=== PATIENT | male | born 1985 | race Caucasian/White ===

== ENCOUNTER 2018-05-15 22:22 | Emergency (ER) | payer SELFPAY ==
[2018-05-15] VITALS (19 sets, daily range): BP systolic 121–140; BP diastolic 65–81; PULSE 72–95; RESP 12–25; TEMP 37.2; O2SAT 94–99
--- NOTE | 2018-05-15 00:42 | DI.RAD_ITS ---
SYMPTOMS/DIAGNOSIS: R > L CHEST DISCOMFORT PA AND LATERAL CHEST: Comparison 03/29/15. The heart is normal in size. The lungs are clear. The mediastinal structures and pleura appear intact. CONCLUSION: Normal chest.
--- NOTE | 2018-05-15 22:41 | W.ED.GENAD ---
Discharge Plan Disposition Patient Disposition: HOME Condition: Improving Discharge Details Chief Complaint: Chest Pain Clinical Impression: Atypical chest pain Primary Care Provider: Can Segura ED Provider: Leon Matias Home Meds and New Rx's Prescriptions: No Action No Known Home Meds RF: 0 Discharge Instructions Instructions: Chest Pain (ED) Additional Instructions: I have ordered an outpatient ultrasound of your gallbladder for Thursday, the radiology department will contact you for an appointment time. Return for any acute concerns. May use tylenol as needed for pain. Medical Decision Making 32-year-old male presents from home with his . He said intermittent episodes of substernal chest discomfort over days time lasting 10 minutes. He arrives improved, well-appearing, with unremarkable vital signs, and exam was essentially within normal limits. Differential diagnosis is broad and would include gastritis, biliary colic, pancreatitis, acute coronary syndrome, pulmonary embolism. Patient referred for EKG, laboratory testing, chest x-ray. Patients labs are essentially unremarkable. His pain did improve in the ED. There is no evidence of PE, pancreatitis. Patient was observed on a vehicle monitor technician with repeat troponin obtained and negative. Discussed with him that there is not evidence of acute life-threatening illness. I will arrange for outpatient right upper quadrant ultrasound to rule out biliary colic. He is stable and appropriate discharged home with his family. He understands return precautions to the ER. Lab Data Lab results reviewed: Yes I reviewed the patient's lab results. Laboratory Tests Range/Units 05/15/18 05/15/18 05/15/18 22:35 22:35 22:35 WBC (4.4-10.8) k/cumm 11.05 H RBC (4.50-6.00) m/cumm 4.85 Hgb (13.5-17.5) g/dL 15.0 Hct (40.0-50.0) % 44.9 MCV (80-95) fL 92.6 MCH (27.0-33.0) pg 30.9 MCHC (32.0-36.0) g/dL 33.4 RDW (11.8-14.1) % 12.7 Plt Count (130-400) x1000/uL 283 MPV (8.0-11.0) fL 10.3 Immature Gran % 0.3 Neutrophils % 53.1 Lymphocytes % 35.1 Monocytes % 7.2 Eosinophils % 3.8 Basophils % 0.5 Absolute Neutrophils (1.2-6.7) k/cumm 5.87 Absolute Lymphocytes (1.2-3.4) k/cumm 3.88 H Absolute Monocytes (0.11-0.7) k/cumm 0.80 H Absolute Eosinophils (0.0-0.7) k/cumm 0.42 Absolute Basophils (0.0-0.2) k/cumm 0.06 PT (9.3-10.8) sec 9.7 INR (1.0-3.5) 1.0 D-Dimer (<500) ng/mlFEU 174 Sodium (136-145) mmol/L 139 Potassium (3.5-5.1) mmol/L 3.7 Chloride (98-107) mmol/L 102 Carbon Dioxide (21.0-32.0) mmol/L 28.2 Anion Gap (3-11) mmol/L 8.8 BUN (7-18) mg/dL 19 H Creatinine (0.70-1.30) mg/dL 0.90 Estimated GFR/1.73 m2 (mL/min/1.73m2) >= 60.00 Glucose (70-100) mg/dL 112 H Calcium (8.5-10.1) mg/dL 9.0 Total Bilirubin (0.2-1.0) mg/dL 0.3 AST (15-37) U/L 26 ALT (12-78) U/L 57 Alkaline Phosphatase (46-116) U/L 92 Troponin I (0.00-0.06) ng/mL < 0.02 Total Protein (6.4-8.2) g/dL 7.1 Albumin (3.4-5.0) g/dL 3.8 Lipase (73-393) U/L Range/Units 05/15/18 22:35 WBC (4.4-10.8) k/cumm RBC (4.50-6.00) m/cumm Hgb (13.5-17.5) g/dL Hct (40.0-50.0) % MCV (80-95) fL MCH (27.0-33.0) pg MCHC (32.0-36.0) g/dL RDW (11.8-14.1) % Plt Count (130-400) x1000/uL MPV (8.0-11.0) fL Immature Gran % Neutrophils % Lymphocytes % Monocytes % Eosinophils % Basophils % Absolute Neutrophils (1.2-6.7) k/cumm Absolute Lymphocytes (1.2-3.4) k/cumm Absolute Monocytes (0.11-0.7) k/cumm Absolute Eosinophils (0.0-0.7) k/cumm Absolute Basophils (0.0-0.2) k/cumm PT (9.3-10.8) sec INR (1.0-3.5) D-Dimer (<500) ng/mlFEU Sodium (136-145) mmol/L Potassium (3.5-5.1) mmol/L Chloride (98-107) mmol/L Carbon Dioxide (21.0-32.0) mmol/L Anion Gap (3-11) mmol/L BUN (7-18) mg/dL Creatinine (0.70-1.30) mg/dL Estimated GFR/1.73 m2 (mL/min/1.73m2) Glucose (70-100) mg/dL Calcium (8.5-10.1) mg/dL Total Bilirubin (0.2-1.0) mg/dL AST (15-37) U/L ALT (12-78) U/L Alkaline Phosphatase (46-116) U/L Troponin I (0.00-0.06) ng/mL Total Protein (6.4-8.2) g/dL Albumin (3.4-5.0) g/dL Lipase (73-393) U/L 142 ECG Data Attestation: I personally reviewed and interpreted this ECG (s) as follows: Interpretation: Normal sinus rhythm, rate of 84, normal intervals, no ST segment elevation HPI General Mode of arrival: ambulatory. Date/Time Provider Initiated Documentation: 05/15/18 22:26. Limitations to Documentation: no limitations. Information obtained by: patient. History of Present Illness 32 year old M presents to the emergency department with the chief complaint of Chest pain, described as moderate, Quality is described as aching, and is localized to the chest and right. Patient reports no radiation. and it has been intermittent. No relieving factors improve symptom(s), No exacerbating factors reported . Patient notes denies fever/chills. HPI Narrative: 32-year-old male presents from home with his complaining of intermittent episodes of substernal to right-sided chest achy and burning discomfort that lasts 10 minutes and dissipates on its own. It comes on without warning. Question whether he had a brief episode of passing out. He has not had leg pain or swelling. He does continue to smoke. He has a family history of coronary artery disease Related Data Home Medications Medication Instructions Recorded Confirmed Unknown [No Known Home Meds] 05/15/18 05/15/18 Allergies Allergy/AdvReac Type Severity Reaction Status Date / Time blueberry Allergy Unknown Unverified 05/15/18 22:54 SEASONAL ALLERGY Allergy Unknown Uncoded 05/15/18 22:54 Review of Systems Review of Systems 8 systems reviewed and otherwise negative [facility] Family History Mother Essential hypertension Father Asthma Sister No problems noted. Grandfather No problems noted. Grandfather No problems noted. Grandmother No problems noted. Grandmother No problems noted. Social History Smoking/Tobacco Use Status: Current every day Exam Narrative Exam Narrative: GEN: awake, alert, oriented 3. Pleasant, well groomed, interactive. HEAD: Normocephalic, atraumatic ENT: Mucous membranes moist, oropharynx unremarkable, External ear exam unremarkable EYES: PERRL, EOMI NECK: Full ROM, no WILDA, no menigismus CHEST/RESP: Nontender, clear to auscultation bilateral, no wheeze/rhonchi/rales CARDIOVASCULAR: RRR, no murmur, rub yesi. 2+ Rad pulse bilateral ABDOMEN: Soft, nontender, no mass. +Bowel sounds EXT: Full ROM, no edema, no rash Neuro: Grossly normal neurologic exam, conversant, interactive. Psych: Speech fluent, thoughts congruent, affect normal
--- NOTE | 2018-05-15 22:44 | ED.GENADUL_ITS ---
Discharge Plan Disposition Patient Disposition: HOME Condition: Improving Discharge Details Chief Complaint: Chest Pain Clinical Impression: Atypical chest pain Primary Care Provider: Can Segura ED Provider: Leon Matias Home Meds and New Rx's Prescriptions: No Action No Known Home Meds RF: 0 Discharge Instructions Instructions: Chest Pain (ED) Additional Instructions: I have ordered an outpatient ultrasound of your gallbladder for Thursday, the radiology department will contact you for an appointment time. Return for any acute concerns. May use tylenol as needed for pain. Medical Decision Making 32-year-old male presents from home with his . He said intermittent episodes of substernal chest discomfort over days time lasting 10 minutes. He arrives improved, well-appearing, with unremarkable vital signs, and exam was essentially within normal limits. Differential diagnosis is broad and would include gastritis, biliary colic, pancreatitis, acute coronary syndrome, pulmonary embolism. Patient referred for EKG, laboratory testing, chest x-ray. Patients labs are essentially unremarkable. His pain did improve in the ED. There is no evidence of PE, pancreatitis. Patient was observed on a residential monitor with repeat troponin obtained and negative. Discussed with him that there is not evidence of acute life-threatening illness. I will arrange for outpatient right upper quadrant ultrasound to rule out biliary colic. He is stable and appropriate discharged home with his family. He understands return precautions to the ER. Lab Data Lab results reviewed: Yes I reviewed the patient's lab results. Laboratory Tests Range/Units 05/15/18 05/15/18 05/15/18 22:35 22:35 22:35 WBC (4.4-10.8) k/cumm 11.05 H RBC (4.50-6.00) m/cumm 4.85 Hgb (13.5-17.5) g/dL 15.0 Hct (40.0-50.0) % 44.9 MCV (80-95) fL 92.6 MCH (27.0-33.0) pg 30.9 MCHC (32.0-36.0) g/dL 33.4 RDW (11.8-14.1) % 12.7 Plt Count (130-400) x1000/uL 283 MPV (8.0-11.0) fL 10.3 Immature Gran % 0.3 Neutrophils % 53.1 Lymphocytes % 35.1 Monocytes % 7.2 Eosinophils % 3.8 Basophils % 0.5 Absolute Neutrophils (1.2-6.7) k/cumm 5.87 Absolute Lymphocytes (1.2-3.4) k/cumm 3.88 H Absolute Monocytes (0.11-0.7) k/cumm 0.80 H Absolute Eosinophils (0.0-0.7) k/cumm 0.42 Absolute Basophils (0.0-0.2) k/cumm 0.06 PT (9.3-10.8) sec 9.7 INR (1.0-3.5) 1.0 D-Dimer (<500) ng/mlFEU 174 Sodium (136-145) mmol/L 139 Potassium (3.5-5.1) mmol/L 3.7 Chloride (98-107) mmol/L 102 Carbon Dioxide (21.0-32.0) mmol/L 28.2 Anion Gap (3-11) mmol/L 8.8 BUN (7-18) mg/dL 19 H Creatinine (0.70-1.30) mg/dL 0.90 Estimated GFR/1.73 m2 (mL/min/1.73m2) >= 60.00 Glucose (70-100) mg/dL 112 H Calcium (8.5-10.1) mg/dL 9.0 Total Bilirubin (0.2-1.0) mg/dL 0.3 AST (15-37) U/L 26 ALT (12-78) U/L 57 Alkaline Phosphatase (46-116) U/L 92 Troponin I (0.00-0.06) ng/mL < 0.02 Total Protein (6.4-8.2) g/dL 7.1 Albumin (3.4-5.0) g/dL 3.8 Lipase (73-393) U/L Range/Units 05/15/18 22:35 WBC (4.4-10.8) k/cumm RBC (4.50-6.00) m/cumm Hgb (13.5-17.5) g/dL Hct (40.0-50.0) % MCV (80-95) fL MCH (27.0-33.0) pg MCHC (32.0-36.0) g/dL RDW (11.8-14.1) % Plt Count (130-400) x1000/uL MPV (8.0-11.0) fL Immature Gran % Neutrophils % Lymphocytes % Monocytes % Eosinophils % Basophils % Absolute Neutrophils (1.2-6.7) k/cumm Absolute Lymphocytes (1.2-3.4) k/cumm Absolute Monocytes (0.11-0.7) k/cumm Absolute Eosinophils (0.0-0.7) k/cumm Absolute Basophils (0.0-0.2) k/cumm PT (9.3-10.8) sec INR (1.0-3.5) D-Dimer (<500) ng/mlFEU Sodium (136-145) mmol/L Potassium (3.5-5.1) mmol/L Chloride (98-107) mmol/L Carbon Dioxide (21.0-32.0) mmol/L Anion Gap (3-11) mmol/L BUN (7-18) mg/dL Creatinine (0.70-1.30) mg/dL Estimated GFR/1.73 m2 (mL/min/1.73m2) Glucose (70-100) mg/dL Calcium (8.5-10.1) mg/dL Total Bilirubin (0.2-1.0) mg/dL AST (15-37) U/L ALT (12-78) U/L Alkaline Phosphatase (46-116) U/L Troponin I (0.00-0.06) ng/mL Total Protein (6.4-8.2) g/dL Albumin (3.4-5.0) g/dL Lipase (73-393) U/L 142 ECG Data Attestation: I personally reviewed and interpreted this ECG (s) as follows: Interpretation: Normal sinus rhythm, rate of 84, normal intervals, no ST segment elevation HPI General Mode of arrival: ambulatory . Date/Time Provider Initiated Documentation: 05/15/18 22:26 . Limitations to Documentation: no limitations . Information obtained by: patient . History of Present Illness 32 year old M presents to the emergency department with the chief complaint of Chest pain, described as moderate, Quality is described as aching, and is localized to the chest and right. Patient reports no radiation. and it has been intermittent. No relieving factors improve symptom(s), No exacerbating factors reported . Patient notes denies fever/chills. HPI Narrative: 32-year-old male presents from home with his complaining of intermittent episodes of substernal to right-sided chest achy and burning discomfort that lasts 10 minutes and dissipates on its own. It comes on without warning. Question whether he had a brief episode of passing out. He has not had leg pain or swelling. He does continue to smoke. He has a family history of coronary artery disease Related Data Home Medications Medication Instructions Recorded Confirmed Unknown [No Known Home Meds] 05/15/18 05/15/18 Allergies Allergy/AdvReac Type Severity Reaction Status Date / Time blueberry Allergy Unknown Unverified 05/15/18 22:54 SEASONAL ALLERGY Allergy Unknown Uncoded 05/15/18 22:54 Review of Systems Review of Systems 8 systems reviewed and otherwise negative [facility] Family History Mother Essential hypertension Father Asthma Sister No problems noted. Grandfather No problems noted. Grandfather No problems noted. Grandmother No problems noted. Grandmother No problems noted. Social History Smoking/Tobacco Use Status: Current every day Exam Narrative Exam Narrative: GEN: awake, alert, oriented 3. Pleasant, well groomed, interactive. HEAD: Normocephalic, atraumatic ENT: Mucous membranes moist, oropharynx unremarkable, External ear exam unremarkable EYES: PERRL, EOMI NECK: Full ROM, no WILDA, no menigismus CHEST/RESP: Nontender, clear to auscultation bilateral, no wheeze/rhonchi/rales CARDIOVASCULAR: RRR, no murmur, rub yesi. 2+ Rad pulse bilateral ABDOMEN: Soft, nontender, no mass. +Bowel sounds EXT: Full ROM, no edema, no rash Neuro: Grossly normal neurologic exam, conversant, interactive. Psych: Speech fluent, thoughts congruent, affect normal
[2018-05-15 23:07] LABS: Abs Immature Grans 0.03 k/cumm (0.0-0.09); Absolute Basophil Count 0.06 k/cumm (0.0-0.2); Absolute Eosinophil Count 0.42 k/cumm (0.0-0.7); Absolute Lymphocyte Count 3.88 k/cumm (1.2-3.4); Basophils % 0.5; Eosinophils % 3.8; HCT 44.9 % (40.0-50.0); Immature Grans % 0.3; Lymphocytes % 35.1; Mean Corp. HGB Concentration 33.4 g/dL (32.0-36.0); Mean Corpuscular Hemoglobin 30.9 pg (27.0-33.0); Mean Corpuscular Volume 92.6 fL (80-95); Mean Platelet Volume 10.3 fL (8.0-11.0); Monocytes % 7.2; Neutrophils % 53.1; Platelet Count 283 x1000/uL (130-400); RBC 4.85 m/cumm (4.50-6.00); RBC Distribution Width 12.7 % (11.8-14.1); White Blood Cell Count 11.05 k/cumm (4.4-10.8)
[2018-05-15 23:08] LABS: Absolute Neutrophil Count 5.87 k/cumm (1.2-6.7)
[2018-05-15] MEDS: Normal Saline 1,000 ML 125 ML IV (23:09)
[2018-05-15 23:18] LABS: Lipase 142 U/L (73-393)
[2018-05-15 23:23] LABS: ALT 57 U/L (12-78); AST 26 U/L (15-37); Albumin 3.8 g/dL (3.4-5.0); Alkaline Phosphatase 92 U/L (46-116); Anion Gap 8.8 mmol/L (3-11); BUN 19 mg/dL (7-18); Bilirubin, Total 0.3 mg/dL (0.2-1.0); CO2 28.2 mmol/L (21.0-32.0); Chloride 102 mmol/L (98-107); Glucose 112 mg/dL (70-100); Potassium 3.7 mmol/L (3.5-5.1); Sodium 139 mmol/L (136-145); Total Protein 7.1 g/dL (6.4-8.2)
[2018-05-15 23:31] LABS: Prothrombin Time 9.7 sec (9.3-10.8)
[2018-05-15 23:35] LABS: Troponin I < 0.02 ng/mL (0.00-0.06)
[2018-05-15 23:37] LABS: D-Dimer 174 ng/mlFEU (<500)
[2018-05-16] VITALS (13 sets, daily range): BP systolic 125–133; BP diastolic 67–77; PULSE 70–88; RESP 11–27; O2SAT 93–96
--- NOTE | 2018-05-16 00:46 | DI.VRAD_ITS ---
EXAM: XR Chest, 2 Views EXAM DATE/TIME: 05/15/2018 11:44 PM CLINICAL HISTORY: 32 years old, male; Signs and symptoms; Cough; Patient HX: Cough, r>l chest discomfort. TECHNIQUE: XR of the chest, 2 views. COMPARISON: CR PORTABLE CHEST ONE VIEW 03/29/2015 10:17 PM FINDINGS: Lungs: Unremarkable. No consolidation. Pleural space: Unremarkable. No pleural effusion. No pneumothorax. Heart/Mediastinum: Unremarkable. No cardiomegaly. Bones/joints: Unremarkable. IMPRESSION: No acute findings. Dictated and Authenticated by: Luís Best MD. Ordering:SHAR NGO MD
[2018-05-16 01:16] LABS: Troponin I < 0.02 ng/mL (0.00-0.06)
== END 2018-05-16 01:35 | disposition home or self-care (01) ==
PROVIDERS: Emergency Provider Emergency Medicine; PCP Family Medicine
DX: R07.89 Other chest pain (principal)
CPT/HCPCS: 36415; 80053; 83690; 93005; 96360; 96361; 99285; 71046; 84484; 85025; 85379; 85610; 93010; 99284

== ENCOUNTER 2018-05-18 15:42 | Emergency (ER) | payer SELFPAY ==
[2018-05-18] VITALS (7 sets, daily range): BP systolic 106–119; BP diastolic 73–85; PULSE 59–88; RESP 16; TEMP 36.6; O2SAT 93–97
--- NOTE | 2018-05-18 15:54 | W.ED.GENAD ---
Discharge Plan Disposition Patient Disposition: HOME Condition: Fair Discharge Details Chief Complaint: Chest/Rib Clinical Impression: Colitis Primary Care Provider: Can Segura ED Provider: Rauqel Almonte Home Meds and New Rx's Prescriptions: New metronidazole [Flagyl] 500 mg tablet 500 mg PO TID Qty: 15 RF: 0 ciprofloxacin HCl [Cipro] 500 mg tablet 500 mg PO BID Qty: 10 RF: 0 promethazine 25 mg tablet 25 mg PO Q6H PRN (Reason: nausea and vomiting) Qty: 10 RF: 0 Discharge Instructions Instructions: Colitis (ED) Additional Instructions: Encourage hydration. Tylenol and/or Motrin as needed for discomfort. Phenergan as prescribed for nausea/vomiting. Please take antibiotics as prescribed for colitis. Our technical healthcare consultant will touch base with you regarding general surgery follow up. Please follow up with primary care in one week if symptoms persist. If you develop fevers, increased pain, are unable to stay hydrated or develop other new/worsening symptoms please seek care urgently once again. Referrals: Ana Davies MD [ [facility] STAFF PHYSICIAN] - ([phone]) Can Segura [Primary Care Provider] - Medical Decision Making <PRINCE Ortiz - Last Filed: 05/18/18 19:37> Patient is a 32-year-old male, accompanied by his , with chief complaint of right-sided flank and abdominal pain. Patient was seen here 2 days ago at which time he had the same discomfort but reports it was more centrally located. At that time, patient had a fairly extensive workup including cardiac rule out, evaluation for pancreatitis. He was referred to an outpatient ultrasound as there was concern for possible biliary colic. However, he reports that he came in for his ultrasound having eaten shortly prior to this and was advised to do this at a later date. He reports that yesterday he was feeling quite well. However, today the pain has exacerbated. States the pain continues to be intermittent lasting approximately 10 minutes at a time. States that food greatly exacerbates this. He attempted to have some chicken soup earlier today and reports that he vomited shortly after. Is currently endorsing nausea. Reports that his pain is somewhat subsided at this time. He denies any fevers or chills. Denies any chest pain or shortness of breath. Patient declining any analgesics at this time On exam, patient appears to be resting comfortably. With movement and laying back she does appear slightly uncomfortable. Reports that this is primarily along the right side. He is indicating the right upper quadrant around to the right flank is area of discomfort. Is quite different from what was described 2 days ago which is much more epigastric midline. Abdomen is soft, no guarding, peritoneal findings. Krause's test is negative. No pain over McBurney's point. No CVA tenderness with testing although this is the area where the patient is localizing discomfort with movement. No pain with AP or lateral compression of the chest. Lungs are clear in all melissa. Vital signs are within normal limits. Obtaied renal and abdominal ultrasound. Per field service technician, no acute abnormalities are noted. Vagina not note any hydronephrosis. Laboratory evaluation was obtained and is without significant of normality. No leukocytosis. Troponin is less than 0.02, lipase is normal. No abnormalities with liver enzymes. Waiting to obtain urinalysis. EKG reviewed by Dr. Polo, please see his note. Discussed findings with the patient. He reports that the Zofran was given intravenously helped minimally with his nausea. I did offer further antiemetics which she declined at this time Ultrasound reviewed by radiologist. Advised that liver measures 14.5 cm. Mild diffuse increase in hepatic echogenicity, consistent with fatty infiltration. Gallbladder wall 2.8 mm. Gallstones, negative sonographic Krause sign. Common bile duct 3.7 mm. Spleen 11.8 B. Visualized pancreas unremarkable. Right kidney 11.2 cm, no hydronephrosis left kidney 12.1 cm, no hydronephrosis prevoid bladder volume 25 cm?, bilateral ureteral jets visualized. Aorta 1.65 cm. Inferior vena cava normal. Portal portal vein is patent. Prostate volume 10 cm?. Advised overall impression significant for mild increase in hepatic parenchymal echodensity consistent with fatty infiltration Urinalysis pending. Patient endorses increased nausea and family has requested further antiemetics at this point. CT reviewed by radiologist. Liver is normal with no mass. Gallbladder is normal no calcified stones, no ductal dilation. Pancreas is normal no ductal dilation. Spleen is normal with no splenomegaly. Adrenals is normal no mass. Kidneys and ureters without abnormality, no calculus or hydronephrosis. The bowel wall is thickened in the right colon which may represent colitis. Normal appendix. Bladder is unremarkable as visualized. Reproductive is unremarkable as visualized. Intraperitoneal space is normal no free air, no significant fluid collection. Both the joints are normal with no acute fracture dislocation. Soft tissues are unremarkable. Vasculature is normal, no abdominal aortic aneurysm. No enlarged lymph nodes Discussed the findings with the patient. He is not endorsing any change in bowel habits. Again, patient has been afebrile no findings to suggest infection on laboratory evaluation. However, given the chronicity of his discomfort over the past several weeks, feels appropriate symmetry with antibiotics and refer to general surgery. Patient responded well to the Phenergan, is resting comfortably and endorses no nausea at this time. Plan to prescribe Cipro, Flagyl and Phenergan. I have asked her technical healthcare consultant help facilitate follow-up with general surgery. Have asked the patient to follow-up with his primary care in the next week as well. We discussed new/worsening symptoms once he care urgently once again. All his questions and concerns were addressed and he is in agreement this plan <Amilcar Polo DO - Last Filed: 05/18/18 17:15> ECG Data Interpretation: EKG 17: 11 Rate 61, intervals normal, no ST elevations or depressions, no significant T wave inversions. Small Q wave less than 1 mm Q waves in lead III. no other abnormal HPI <PRINCE Ortiz - Last Filed: 05/18/18 19:37> General Mode of arrival: ambulatory. Date/Time Provider Initiated Documentation: 05/18/18 15:53. Limitations to Documentation: no limitations. Information obtained by: patient and family. History of Present Illness 32 year old M presents to the emergency department with the chief complaint of abdomen/flank pain, described as moderate, with intensity rated at 7. Quality is described as aching, and is localized to the back and abdomen. Patient reports radiation to back and flank; denies neck and extremity. Patient started experiencing this week(s) (2-3) and it has been intermittent. No relieving factors improve symptom(s), Eating worsens symptoms . Patient notes chest pain (states he has had intermittent CP, now resolved.), fever/chills (endorses feeling chilled recently), loss of appetite and nausea/vomiting (vomited x 1, currently endorsing nausea); denies cough, diaphoresis, headaches, rash, shortness of breath and syncope. Patient did receive the following treatments prior to arrival, none Related Data Home Medications Medication Instructions Recorded Confirmed ciprofloxacin HCl [Cipro] 500 mg PO BID #10 tab 05/18/18 metronidazole [Flagyl] 500 mg PO TID #15 tab 05/18/18 promethazine 25 mg PO Q6H PRN #10 tab 05/18/18 Previous Rx's Medication Instructions Recorded ciprofloxacin HCl [Cipro] 500 mg PO BID #10 tab 05/18/18 metronidazole [Flagyl] 500 mg PO TID #15 tab 05/18/18 promethazine 25 mg PO Q6H PRN #10 tab 05/18/18 Allergies Allergy/AdvReac Type Severity Reaction Status Date / Time blueberry Allergy Unknown Unverified 05/18/18 15:51 SEASONAL ALLERGY Allergy Unknown Uncoded 05/18/18 15:51 General Stated Complaint: Chest/Rib FABRICE: 3 Review of Systems <PRINCE Ortiz - Last Filed: 05/18/18 19:37> Constitutional Reports as per HPI and Denies headache(s) ENT Denies headache(s) Cardiovascular Reports as per HPI, Reports chest pain, Denies leg edema, Denies lightheadedness, Denies radiating jaw, neck or arm pain, Denies palpitations, Denies dyspnea and Denies dyspnea on exertion Respiratory Denies cough, Denies pain with cough, Denies dyspnea, Denies dyspnea on exertion and Denies wheezing Gastrointestinal Reports as per HPI, Reports abdominal pain, Denies change in bowel habits, Reports nausea and Reports vomiting Genitourinary Denies system reviewed and no additional complaints, except as docu (denies any change in urinary habits), Denies scrotal swelling and Denies testicular pain Musculoskeletal Reports as per HPI and Reports back pain Integumentary/Breasts Denies rash Neurologic Denies headache(s) Endocrine Denies palpitations Allergic/Immunologic Denies wheezing Exam <PRINCE Ortiz Last Filed: 05/18/18 19:37> Const General: cooperative, healthy appearing, uncomfortable (patient appears uncomfortable, moving slowly), no acute distress, well developed and well groomed Nutritional Appearance: average body habitus and well nourished Orientation: alert and awake HENAZ Head: normal to inspection Ears: hearing grossly normal bilaterally Mouth: mucous membranes dry (patient appears dry on exam) Eyes General: appearance normal, both eyes and all related structures Chest Chest: normal inspection of the chest, normal palpation of entire chest wall, no crepitus, no localized rib tenderness and no tenderness Resp Effort & Inspection: normal respiratory effort, able to speak in complete sentences and no respiratory distress Auscultation: clear to auscultation bilaterally, no rales, no rhonchi and no wheezes Cardio Rate: regular rate Rhythm: regular rhythm Heart Sounds: S1 normal and S2 normal GI Inspection: normal to inspection, no abdominal wall ecchymosis, no edema, non-distended, no incisions and no large pannus Palpation: soft, no hepatosplenomegaly, not firm, no guarding, no hepatosplenomegaly, no masses, not rigid and tender in the RUQ; not in the epigastrum, not at McBurney's point, not periumbilically, Krause's sign negative, with no rebound tenderness and Rovsing's sign negative Percussion: normal to percussion Auscultation: normal bowel sounds Back/Spine/Pelvis Back: no CVA tenderness Thoracic/Lumbar Spine: thoracic and lumbar spine normal to inspection, No paraspinal tenderness, No thoraco-lumbar spasm, No thoracic spinal tenderness and No lumbar spinal tenderness Skin General skin exam: no rashes or lesions noted Lesions: no lesions Rashes: no rashes Trauma: no lacerations or abrasions Neuro General: alert and awake Cognition: normal cognition Speech: speech normal Gait: normal gait Psych Appearance: grossly normal and well kempt Mental Status: mental status grossly normal Speech and Movement: speech and movement normal Course <PRINCE Ortiz - Last Filed: 05/18/18 19:37> Vital Signs Temperature 36.6 C 05/18/18 15:46 Pulse 88 05/18/18 15:46 Respiratory Rate 16 05/18/18 15:46 Blood Pressure 119/73 05/18/18 15:46 Pulse Oximetry 84 L 05/18/18 15:46 Temperature 36.6 C 05/18/18 15:46 Temperature Source Skin 05/18/18 15:46 Pulse 88 05/18/18 15:46 Respiratory Rate 16 05/18/18 15:46 Respiratory Effort 05/18/18 15:51 Respiratory Depth Normal 11/06/18 15:51 Respiratory Pattern Irregular 05/18/18 15:51 Blood Pressure 119/73 05/18/18 15:46 Blood Pressure Position Sitting 05/18/18 15:46 Pulse Oximetry 84 L 05/18/18 15:46 Oxygen Delivery Method Room Air 05/18/18 15:46 Oxygen Flow Rate 0 05/18/18 15:46 Pain Level 7 05/18/18 15:51
--- NOTE | 2018-05-18 16:06 | DI.COMBO_ITS ---
SYMPTOM/DIAGNOSIS: RUQ PAIN, FLANK PAIN ABDOMEN AND RENAL ULTRASOUND: The visualized portions of the aorta appear intact. The vena cava is normal. The liver is not enlarged and mild increased echogenicity is noted consistent with fatty infiltration. There is no Krause's sign. The gallbladder is intact. There is no wall thickening, stones or evidence of biliary dilatation. The pancreas is normal. The kidneys are normal and bilateral ureteral jets were visualized. The prostate is not enlarged. SUMMARY: There is a question regarding fatty liver. The examination is otherwise unremarkable. ABDOMEN AND PELVIC CT: The study was carried out with an intravenous administration of 125 cc's of Omnipaque 350. Regions of bibasilar lower lobe atelectasis are identified. The liver is unremarkable. The gallbladder is normal. There are no stones or ductal dilatation. The pancreas is normal. The spleen is normal. The kidneys are normal. The adrenals are normal. The bladder is suboptimally distended but no gross abnormality is identified. Allowing for the absence of contrast material in the bowel, there is a question regarding bowel wall thickening involving the right colon which could indicate colitis. No localized mass is seen. The reproductive organs as visualized are unremarkable. There is no evidence of free air or free fluid in the intraperitoneal space. No acute bony abnormality is seen. There is a tiny fat containing umbilical hernia. There is no evidence of an aortic aneurysm. Bowel wall thickening right colon is noted. This could represent colitis. The study is interpreted in the absence of oral contrast. Correlation with the above findings and if indicated, further assessment with colonoscopy is suggested.
--- NOTE | 2018-05-18 16:19 | ED.GENADUL_ITS ---
Discharge Plan Disposition Patient Disposition: HOME Condition: Fair Discharge Details Chief Complaint: Chest/Rib Clinical Impression: Colitis Primary Care Provider: Can Segura ED Provider: Raquel Almonte Home Meds and New Rx's Prescriptions: New metronidazole [Flagyl] 500 mg tablet 500 mg PO TID Qty: 15 RF: 0 ciprofloxacin HCl [Cipro] 500 mg tablet 500 mg PO BID Qty: 10 RF: 0 promethazine 25 mg tablet 25 mg PO Q6H PRN (Reason: nausea and vomiting) Qty: 10 RF: 0 Discharge Instructions Instructions: Colitis (ED) Additional Instructions: Encourage hydration. Tylenol and/or Motrin as needed for discomfort. Phenergan as prescribed for nausea/vomiting. Please take antibiotics as prescribed for colitis. Our home care rn will touch base with you regarding general surgery follow up. Please follow up with primary care in one week if symptoms persist. If you develop fevers, increased pain, are unable to stay hydrated or develop other new/worsening symptoms please seek care urgently once again. Referrals: Ana Davies MD [ [facility] STAFF PHYSICIAN] - ([phone]) Can Segura [Primary Care Provider] - Medical Decision Making <PRINCE Ortiz - Last Filed: 05/18/18 19:37> Patient is a 32-year-old male, accompanied by his , with chief complaint of right-sided flank and abdominal pain. Patient was seen here 2 days ago at which time he had the same discomfort but reports it was more centrally located. At that time, patient had a fairly extensive workup including cardiac rule out, evaluation for pancreatitis. He was referred to an outpatient ultrasound as there was concern for possible biliary colic. However, he reports that he came in for his ultrasound having eaten shortly prior to this and was advised to do this at a later date. He reports that yesterday he was feeling quite well. However, today the pain has exacerbated. States the pain continues to be intermittent lasting approximately 10 minutes at a time. States that food greatly exacerbates this. He attempted to have some chicken soup earlier today and reports that he vomited shortly after. Is currently endorsing nausea. Reports that his pain is somewhat subsided at this time. He denies any fevers or chills. Denies any chest pain or shortness of breath. Patient declining any analgesics at this time On exam, patient appears to be resting comfortably. With movement and laying back she does appear slightly uncomfortable. Reports that this is primarily along the right side. He is indicating the right upper quadrant around to the right flank is area of discomfort. Is quite different from what was described 2 days ago which is much more epigastric midline. Abdomen is soft, no guarding , peritoneal findings. Krause's test is negative. No pain over McBurney's point. No CVA tenderness with testing although this is the area where the patient is localizing discomfort with movement. No pain with AP or lateral compression of the chest. Lungs are clear in all melissa. Vital signs are within normal limits. Obtaied renal and abdominal ultrasound. Per pharmacy intake technician, no acute abnormalities are noted. Vagina not note any hydronephrosis. Laboratory evaluation was obtained and is without significant of normality. No leukocytosis. Troponin is less than 0.02, lipase is normal. No abnormalities with liver enzymes. Waiting to obtain urinalysis. EKG reviewed by Dr. Polo, please see his note. Discussed findings with the patient. He reports that the Zofran was given intravenously helped minimally with his nausea. I did offer further antiemetics which she declined at this time Ultrasound reviewed by radiologist. Advised that liver measures 14.5 cm. Mild diffuse increase in hepatic echogenicity, consistent with fatty infiltration. Gallbladder wall 2.8 mm. Gallstones, negative sonographic Krause sign. Common bile duct 3.7 mm. Spleen 11.8 B. Visualized pancreas unremarkable. Right kidney 11.2 cm, no hydronephrosis left kidney 12.1 cm, no hydronephrosis prevoid bladder volume 25 cm?, bilateral ureteral jets visualized. Aorta 1.65 cm. Inferior vena cava normal. Portal portal vein is patent. Prostate volume 10 cm?. Advised overall impression significant for mild increase in hepatic parenchymal echodensity consistent with fatty infiltration Urinalysis pending. Patient endorses increased nausea and family has requested further antiemetics at this point. CT reviewed by radiologist. Liver is normal with no mass. Gallbladder is normal no calcified stones, no ductal dilation. Pancreas is normal no ductal dilation. Spleen is normal with no splenomegaly. Adrenals is normal no mass. Kidneys and ureters without abnormality, no calculus or hydronephrosis. The bowel wall is thickened in the right colon which may represent colitis. Normal appendix. Bladder is unremarkable as visualized. Reproductive is unremarkable as visualized. Intraperitoneal space is normal no free air, no significant fluid collection. Both the joints are normal with no acute fracture dislocation. Soft tissues are unremarkable. Vasculature is normal, no abdominal aortic aneurysm. No enlarged lymph nodes Discussed the findings with the patient. He is not endorsing any change in bowel habits. Again, patient has been afebrile no findings to suggest infection on laboratory evaluation. However, given the chronicity of his discomfort over the past several weeks, feels appropriate symmetry with antibiotics and refer to general surgery. Patient responded well to the Phenergan, is resting comfortably and endorses no nausea at this time. Plan to prescribe Cipro, Flagyl and Phenergan. I have asked her home care rn help facilitate follow-up with general surgery. Have asked the patient to follow-up with his primary care in the next week as well. We discussed new/worsening symptoms once he care urgently once again. All his questions and concerns were addressed and he is in agreement this plan <Amilcar Polo DO - Last Filed: 05/18/18 17:15> ECG Data Interpretation: EKG 17: 11 Rate 61, intervals normal, no ST elevations or depressions, no significant T wave inversions. Small Q wave less than 1 mm Q waves in lead III. no other abnormal HPI <PRINCE Ortiz - Last Filed: 05/18/18 19:37> General Mode of arrival: ambulatory . Date/Time Provider Initiated Documentation: 05/18/18 15:53 . Limitations to Documentation: no limitations . Information obtained by: patient and family . History of Present Illness 32 year old M presents to the emergency department with the chief complaint of abdomen/flank pain, described as moderate, with intensity rated at 7. Quality is described as aching, and is localized to the back and abdomen. Patient reports radiation to back and flank; denies neck and extremity. Patient started experiencing this week(s) (2-3) and it has been intermittent. No relieving factors improve symptom(s), Eating worsens symptoms . Patient notes chest pain (states he has had intermittent CP, now resolved.), fever/chills (endorses feeling chilled recently), loss of appetite and nausea/ vomiting (vomited x 1, currently endorsing nausea); denies cough, diaphoresis, headaches, rash, shortness of breath and syncope. Patient did receive the following treatments prior to arrival, none Related Data Home Medications Medication Instructions Recorded Confirmed ciprofloxacin HCl [Cipro] 500 mg PO BID #10 tab 05/18/18 metronidazole [Flagyl] 500 mg PO TID #15 tab 05/18/18 promethazine 25 mg PO Q6H PRN #10 tab 05/18/18 Previous Rx's Medication Instructions Recorded ciprofloxacin HCl [Cipro] 500 mg PO BID #10 tab 05/18/18 metronidazole [Flagyl] 500 mg PO TID #15 tab 05/18/18 promethazine 25 mg PO Q6H PRN #10 tab 05/18/18 Allergies Allergy/AdvReac Type Severity Reaction Status Date / Time blueberry Allergy Unknown Unverified 05/18/18 15:51 SEASONAL ALLERGY Allergy Unknown Uncoded 05/18/18 15:51 General Stated Complaint: Chest/Rib FABRICE: 3 Review of Systems <PRINCE Ortiz - Last Filed: 05/18/18 19:37> Constitutional Reports as per HPI and Denies headache(s) ENT Denies headache(s) Cardiovascular Reports as per HPI, Reports chest pain, Denies leg edema, Denies lightheadedness , Denies radiating jaw, neck or arm pain, Denies palpitations, Denies dyspnea and Denies dyspnea on exertion Respiratory Denies cough, Denies pain with cough, Denies dyspnea, Denies dyspnea on exertion and Denies wheezing Gastrointestinal Reports as per HPI, Reports abdominal pain, Denies change in bowel habits, Reports nausea and Reports vomiting Genitourinary Denies system reviewed and no additional complaints, except as docu (denies any change in urinary habits), Denies scrotal swelling and Denies testicular pain Musculoskeletal Reports as per HPI and Reports back pain Integumentary/Breasts Denies rash Neurologic Denies headache(s) Endocrine Denies palpitations Allergic/Immunologic Denies wheezing Exam <PRINCE Ortiz Last Filed: 05/18/18 19:37> Const General: cooperative, healthy appearing, uncomfortable (patient appears uncomfortable, moving slowly), no acute distress, well developed and well groomed Nutritional Appearance: average body habitus and well nourished Orientation: alert and awake HENTN Head: normal to inspection Ears: hearing grossly normal bilaterally Mouth: mucous membranes dry (patient appears dry on exam) Eyes General: appearance normal, both eyes and all related structures Chest Chest: normal inspection of the chest, normal palpation of entire chest wall, no crepitus, no localized rib tenderness and no tenderness Resp Effort & Inspection: normal respiratory effort, able to speak in complete sentences and no respiratory distress Auscultation: clear to auscultation bilaterally, no rales, no rhonchi and no wheezes Cardio Rate: regular rate Rhythm: regular rhythm Heart Sounds: S1 normal and S2 normal GI Inspection: normal to inspection, no abdominal wall ecchymosis, no edema, non- distended, no incisions and no large pannus Palpation: soft, no hepatosplenomegaly, not firm, no guarding, no hepatosplenomegaly, no masses, not rigid and tender in the RUQ; not in the epigastrum, not at McBurney's point, not periumbilically, Krause's sign negative , with no rebound tenderness and Rovsing's sign negative Percussion: normal to percussion Auscultation: normal bowel sounds Back/Spine/Pelvis Back: no CVA tenderness Thoracic/Lumbar Spine: thoracic and lumbar spine normal to inspection, No paraspinal tenderness, No thoraco-lumbar spasm, No thoracic spinal tenderness and No lumbar spinal tenderness Skin General skin exam: no rashes or lesions noted Lesions: no lesions Rashes: no rashes Trauma: no lacerations or abrasions Neuro General: alert and awake Cognition: normal cognition Speech: speech normal Gait: normal gait Psych Appearance: grossly normal and well kempt Mental Status: mental status grossly normal Speech and Movement: speech and movement normal Course <PRINCE Ortiz - Last Filed: 05/18/18 19:37> Vital Signs Temperature 36.6 C 05/18/18 15:46 Pulse 88 05/18/18 15:46 Respiratory Rate 16 05/18/18 15:46 Blood Pressure 119/73 05/18/18 15:46 Pulse Oximetry 84 L 05/18/18 15:46 Temperature 36.6 C 05/18/18 15:46 Temperature Source Skin 05/18/18 15:46 Pulse 88 05/18/18 15:46 Respiratory Rate 16 05/18/18 15:46 Respiratory Effort 05/18/18 15:51 Respiratory Depth Normal 11/06/18 15:51 Respiratory Pattern Irregular 05/18/18 15:51 Blood Pressure 119/73 05/18/18 15:46 Blood Pressure Position Sitting 05/18/18 15:46 Pulse Oximetry 84 L 05/18/18 15:46 Oxygen Delivery Method Room Air 05/18/18 15:46 Oxygen Flow Rate 0 05/18/18 15:46 Pain Level 7 05/18/18 15:51
[2018-05-18] MEDS: Normal Saline 1,000 ML 1000 ML IV ×2 (16:30→17:30)
[2018-05-18] MEDS: Ondansetron 4 MG/2 ML VIAL IVP (16:30)
[2018-05-18 16:31] LABS: Abs Immature Grans 0.01 k/cumm (0.0-0.09); Absolute Basophil Count 0.05 k/cumm (0.0-0.2); Absolute Eosinophil Count 0.24 k/cumm (0.0-0.7); Absolute Lymphocyte Count 2.67 k/cumm (1.2-3.4); Absolute Monocyte Count 0.58 k/cumm (0.11-0.7); Absolute Neutrophil Count 3.51 k/cumm (1.2-6.7); Basophils % 0.7; Eosinophils % 3.4; HCT 45.8 % (40.0-50.0); HGB 15.4 g/dL (13.5-17.5); Immature Grans % 0.1; Lymphocytes % 37.8; Mean Corp. HGB Concentration 33.6 g/dL (32.0-36.0); Mean Corpuscular Hemoglobin 30.9 pg (27.0-33.0); Mean Platelet Volume 9.6 fL (8.0-11.0); Monocytes % 8.2; Neutrophils % 49.8; Platelet Count 258 x1000/uL (130-400); RBC 4.98 m/cumm (4.50-6.00); RBC Distribution Width 12.8 % (11.8-14.1); White Blood Cell Count 7.06 k/cumm (4.4-10.8)
[2018-05-18 16:43] LABS: Lipase 113 U/L (73-393)
[2018-05-18 16:51] LABS: ALT 46 U/L (12-78); AST 22 U/L (15-37); Alkaline Phosphatase 83 U/L (46-116); Anion Gap 6.2 mmol/L (3-11); BUN 14 mg/dL (7-18); Bilirubin, Total 0.5 mg/dL (0.2-1.0); CO2 28.8 mmol/L (21.0-32.0); CREATININE 0.87 mg/dL (0.70-1.30); Calcium 8.9 mg/dL (8.5-10.1); Chloride 103 mmol/L (98-107); Glucose 93 mg/dL (70-100); Magnesium 1.9 mg/dL (1.8-2.4); Potassium 3.9 mmol/L (3.5-5.1); Sodium 138 mmol/L (136-145); Troponin I < 0.02 ng/mL (0.00-0.06)
--- NOTE | 2018-05-18 17:15 | DI.VRAD_ITS ---
EXAM: US Abdomen Complete EXAM DATE/TIME: 05/18/2018 4:58 PM CLINICAL HISTORY: 32 years old, male; Pain; Abdominal pain; Localized; Right upper quadrant (ruq) TECHNIQUE: Real-time ultrasound of the abdomen with image documentation. COMPARISON: No relevant prior studies available. FINDINGS: Liver: Liver measures 14.5 cm . Mild diffuse increase in hepatic parenchymal echogenicity, consistent with fatty infiltration. Gallbladder: Gallbladder wall 2.8 mm . No gallstones. Negative sonographic Krause's sign Common bile duct: Common bile duct 3.7 mm Spleen: Spleen 11.8 cm Pancreas: Visualized pancreas is unremarkable. Right kidney: Right kidney 11.2 cm. No hydronephrosis Left kidney: Left kidney 12.1 cm . No hydronephrosis Bladder: Prevoid bladder volume 25 cubic centimeters. Bilateral ureteral jets Aorta: Aorta 1.65 cm Inferior vena cava: Normal. Portal venous: Portal vein is patent Other findings: Prostate volume 10 cubic centimeters IMPRESSION: Mild diffuse increase in hepatic parenchymal echogenicity, consistent with fatty infiltration. Dictated and Authenticated by: Dain Duenas MD. Ordering:JESSICA GARCIA MD
[2018-05-18 17:53] LABS: Bilirubin Negative (Negative); Blood Negative (Negative); Clarity Clear; Glucose Negative (Negative); Ketones Negative (Negative); Leukocyte Esterase Negative (Negative); Nitrite Negative (Negative); Specific Gravity 1.015 (1.005-1.025); Urobilinogen 0.2 EU/dL (Up TO 0.2)
[2018-05-18] MEDS: Omnipaque 350 MG/ML 100 ML BTL IV (18:41)
--- NOTE | 2018-05-18 19:08 | DI.VRAD_ITS ---
EXAM: CT Abdomen and Pelvis With Intravenous Contrast EXAM DATE/TIME: 05/18/2018 6:11 PM CLINICAL HISTORY: 32 years old, male; Signs and symptoms; Nausea and vomiting and other: Ruq and flank pain; Additional info: Ruq and flank pain and PT stated been n/v/d for 2 days TECHNIQUE: Axial computed tomography images of the abdomen and pelvis with intravenous contrast. All CT scans at this facility use at least one of these dose optimization techniques: automated exposure control; mA and/or kV adjustment per patient size (includes targeted exams where dose is matched to clinical indication); or iterative reconstruction. Coronal and sagittal reformatted images were created and reviewed. CONTRAST: 125 ml of omnipaque 350 administered intravenously. COMPARISON: CT ABD PELVIS WITH CONTRAST 05/25/2017 11:40 PM FINDINGS: Lower thorax: Bibasilar atelectasis ABDOMEN: Liver: Normal. No mass. Gallbladder and bile ducts: Normal. No calcified stones. No ductal dilation. Pancreas: Normal. No ductal dilation. Spleen: Normal. No splenomegaly. Adrenals: Normal. No mass. Kidneys and ureters: No ureteral calculus No renal calculus . No hydronephrosis or Stomach and bowel: Bowel wall thickening in the right colon may represent colitis. Appendix: Normal appendix PELVIS: Bladder: Unremarkable as visualized. Reproductive: Unremarkable as visualized. ABDOMEN and PELVIS: Intraperitoneal space: Normal. No free air. No significant fluid collection. Bones/joints: No acute fracture. No dislocation. Soft tissues: Unremarkable. Vasculature: Normal. No abdominal aortic aneurysm. Lymph nodes: Normal. No enlarged lymph nodes. IMPRESSION: Bowel wall thickening in the right colon may represent colitis. Dictated and Authenticated by: Dain Duenas MD. Ordering:JESSICA GARCIA MD
--- NOTE | 2018-05-19 11:25 | NUR.NOTE ---
Nursing Note: Patient has a follow up appointment with Dr. Green on 05/24/18 as recommended by ER after ER visit for colitis.
== END 2018-05-18 19:35 | disposition home or self-care (01) ==
PROVIDERS: Emergency Provider Physician Assistant; PCP Family Medicine
DX: K52.9 Noninfective gastroenteritis and colitis, unspecified (principal)
CPT/HCPCS: 36415; 76770; 80053; 83690; 93005; 96361; 96365; 96375; 99285; 74177; 76700; 81003; 83735; 84484; 85025; 93010; J2405; J3490

== ENCOUNTER 2018-06-22 07:53 | Day surgery (SDC) | payer SELFPAY ==
[2018-06-22 08:06] VITALS: BP 120/77; PULSE 90; RESP 18; TEMP 37.1; O2SAT 97
[2018-06-22] MEDS: Lactated Ringers 1,000 ML 30 ML IV (08:21)
--- NOTE | 2018-06-22 10:06 | BOWEL_PTH ---
PATIENT: Sincere Talamantes LOC: [facility] U#:[id number] AGE/SX: 32/M ROOM: RE06/22/[address]: Jesús Green DO : 1985 BED: DIS: 06/22/2018 SPEC #: [id number] RECD: 06/22/18 12:55 STATUS: LOIS REQ #: [id number] BASSAM: 06/22/18 10:[address]: Jesús Green DEPT: Surgical Specimen RECD BY: Ange Manjarrez ENTERED: 06/22/18 12:56 SP TYPE: Bowel OTHR DR: Can Segura MD Tissues: 1 - BIOPSY BOWEL 2 - BIOPSY BOWEL Procedures: GROSS AND MICRO LEVEL 4 Comments: [id number]
--- NOTE | 2018-06-22 10:37 | W.COLOREPORT ---
Date of service: 06/22/18 Time of Service: 10:40 Colonoscopy Report Date of procedure: 06/22/18 Pre-op diagnosis general: Abnormal Findings of the colon on CT Post-op diagnosis procedure note: other (1. Normal colon 2. GradeII hemorrhoids) Procedure: Colonoscopy to the cecum with biopsy by cold forceps Surgeon: Jesús Green Anesthesia proc note operative: MAC (Leander Hill CRNA; ASA 2 Mallampati class II) Estimated blood loss (mL): 1 Pathology: other (1. Random colon biopsies 2. Random rectal biopsies) Complications: None Disposition: same day Indications: 32-year-old male referred from the emergency room for abdominal pain with abnormal findings on CT of the right colon. Mr. Talamantes is a pleasant 32-year-old gentleman who had multiple visits to the emergency room in the last 2 weeks for generalized right-sided pain, including numbness of his right arm. He had associated nausea and vomiting with this abdominal pain. He continues to have abdominal discomfort that is fairly continuous, dull in nature, and nonradiating. Workup in the emergency room did show abnormal findings in the right colon with a thickened cecum and ascending colon, which is suspicious for colitis. It was recommended he undergo a colonoscopy. The procedure was discussed with him, and the risks reviewed. All his questions were answered to his satisfaction. Consent was obtained to proceed with colonoscopy Prep: Miralax/Dulcolax (Prep quality excellent) Findings: In examination of the colon from cecum to the anus, no gross abnormalities were noted in the terminal ileum, colon, and rectum. Random biopsies were taken throughout the colon and rectum which were submitted to pathology. Procedure Description: The patient was seen in the day surgery waiting area. His identification was confirmed, and procedure checked. He was then brought to the procedure room. Monitoring for telemetry, blood pressure, oxygen saturation, and end tidal CO2 monitoring were applied. An appropriate time out was performed to confirm, identification, allergies, medication, procedure, was performed. Sedation was titrated for affect by the PLANNER CHIEF; Once adequate sedation was achieved, I performed a inspection of the external perineum, and a digitial rectal examination. No significant external abnormalities were noted. On digital rectal examination, there was no blood, no masses, good rectal tone, and a normal prostate. I advanced the colonoscope from the anus to the cecum under direct visualization. The cecum was identified by the ileal-cecal valve, and the appendiceal orifice. The terminal ileum was intubated for approximately 20 cm and appeared grossly normal. Scope was then withdrawn back into the cecum, and subsequently withdrawn circumferential manner from the cecum to the rectum. The colon appeared grossly normal, but random biopsies were taken throughout the colon. The scope was then withdrawn into the rectum, and retroflexed. No abnormalities were noted of the rectum, and random biopsies were taken throughout the colon and submitted for pathology. At the anorectal junction patient was noted to have grade 2 hemorrhoids. The scope was then withdrawn, terminating the procedure. There were no complications during the procedure, and the patient tolerated the procedure well. He was returned to the day surgery recovery area in good condition. Plan: We will await biopsy results before making further recommendations. As to the hemorrhoids, these should be amenable to topical treatment.
--- NOTE | 2018-06-22 10:51 | W.PM.DSUDISC ---
Discharge Plan Disposition Patient Disposition: HOME Condition: Good Discharge Details Reason For Visit: ABNORMAL FINDINGS ON CT SCAN Attending Provider: Jesús Green Primary Care Provider: Can Segura Home Meds and New Rx's Prescriptions: No Action metronidazole [Flagyl] 500 mg tablet 500 mg PO TID Qty: 15 RF: 0 ciprofloxacin HCl [Cipro] 500 mg tablet 500 mg PO BID Qty: 10 RF: 0 promethazine 25 mg tablet 25 mg PO Q6H PRN (Reason: nausea and vomiting) Qty: 10 RF: 0 Discharge Instructions Instructions: Colonoscopy (DC) Stand Alone Forms: Colonoscopy Post Instructions, Feng Davies (DSU) Activity:: Activity as Tolerated Diet:: As Tolerated Discharge Orders Discharge Orders: Discharge Order (Routine); Ordered 06/22/18 Ordered By: Jesús Green DS: Diagnosis Discharge Diagnosis (1) Abnormal finding on CT scan: Status: Acute Asessment and Plan: Colonoscopy performed: Colonoscopy Report Date of procedure: 06/22/18 Pre-op diagnosis general: Abnormal Findings of the colon on CT Post-op diagnosis procedure note: other (1. Normal colon 2. GradeII hemorrhoids) Procedure: Colonoscopy to the cecum with biopsy by cold forceps Surgeon: Jesús Green Anesthesia proc note operative: MAC ([place]ander [place] CRNA; ASA 2 Mallampati class II) Estimated blood loss (mL): 1 Pathology: other (1. Random colon biopsies 2. Random rectal biopsies) Complications: None Disposition: same day Indications: 32-year-old male referred from the emergency room for abdominal pain with abnormal findings on CT of the right colon. Mr. Talamantes is a pleasant 32-year-old gentleman who had multiple visits to the emergency room in the last 2 weeks for generalized right-sided pain, including numbness of his right arm. He had associated nausea and vomiting with this abdominal pain. He continues to have abdominal discomfort that is fairly continuous, dull in nature, and nonradiating. Workup in the emergency room did show abnormal findings in the right colon with a thickened cecum and ascending colon, which is suspicious for colitis. It was recommended he undergo a colonoscopy. The procedure was discussed with him, and the risks reviewed. All his questions were answered to his satisfaction. Consent was obtained to proceed with colonoscopy Prep: Miralax/Dulcolax (Prep quality excellent) Findings: In examination of the colon from cecum to the anus, no gross abnormalities were noted in the terminal ileum, colon, and rectum. Random biopsies were taken throughout the colon and rectum which were submitted to pathology. Procedure Description: The patient was seen in the day surgery waiting area. His identification was confirmed, and procedure checked. He was then brought to the procedure room. Monitoring for telemetry, blood pressure, oxygen saturation, and end tidal CO2 monitoring were applied. An appropriate time out was performed to confirm, identification, allergies, medication, procedure, was performed. Sedation was titrated for affect by the PRINTED CIRCUIT BOARD DRAFTER; Once adequate sedation was achieved, I performed a inspection of the external perineum, and a digitial rectal examination. No significant external abnormalities were noted. On digital rectal examination, there was no blood, no masses, good rectal tone, and a normal prostate. I advanced the colonoscope from the anus to the cecum under direct visualization. The cecum was identified by the ileal-cecal valve, and the appendiceal orifice. The terminal ileum was intubated for approximately 20 cm and appeared grossly normal. Scope was then withdrawn back into the cecum, and subsequently withdrawn circumferential manner from the cecum to the rectum. The colon appeared grossly normal, but random biopsies were taken throughout the colon. The scope was then withdrawn into the rectum, and retroflexed. No abnormalities were noted of the rectum, and random biopsies were taken throughout the colon and submitted for pathology. At the anorectal junction patient was noted to have grade 2 hemorrhoids. The scope was then withdrawn, terminating the procedure. There were no complications during the procedure, and the patient tolerated the procedure well. He was returned to the day surgery recovery area in good condition. Plan: We will await biopsy results before making further recommendations. As to the hemorrhoids, these should be amenable to topical treatment.
--- NOTE | 2018-06-22 10:56 | PDOC.DSDIS_ITS ---
Discharge Plan Disposition Patient Disposition: HOME Condition: Good Discharge Details Reason For Visit: ABNORMAL FINDINGS ON CT SCAN Attending Provider: Jesús Green Primary Care Provider: Can Segura Home Meds and New Rx's Prescriptions: No Action metronidazole [Flagyl] 500 mg tablet 500 mg PO TID Qty: 15 RF: 0 ciprofloxacin HCl [Cipro] 500 mg tablet 500 mg PO BID Qty: 10 RF: 0 promethazine 25 mg tablet 25 mg PO Q6H PRN (Reason: nausea and vomiting) Qty: 10 RF: 0 Discharge Instructions Instructions: Colonoscopy (DC) Stand Alone Forms: Colonoscopy Post Instructions, Feng Davies (DSU) Activity:: Activity as Tolerated Diet:: As Tolerated Discharge Orders Discharge Orders: Discharge Order (Routine); Ordered 06/22/18 Ordered By: Jesús Green DS: Diagnosis Discharge Diagnosis (1) Abnormal finding on CT scan: Status: Acute Asessment and Plan: Colonoscopy performed: Colonoscopy Report Date of procedure: 06/22/18 Pre-op diagnosis general: Abnormal Findings of the colon on CT Post-op diagnosis procedure note: other (1. Normal colon 2. GradeII hemorrhoids) Procedure: Colonoscopy to the cecum with biopsy by cold forceps Surgeon: Jesús Green Anesthesia proc note operative: MAC ([place] CRNA; ASA 2 Mallampati class II) Estimated blood loss (mL): 1 Pathology: other (1. Random colon biopsies 2. Random rectal biopsies) Complications: None Disposition: same day Indications: 32-year-old male referred from the emergency room for abdominal pain with abnormal findings on CT of the right colon. Mr. Talamantes is a pleasant 32-year- old gentleman who had multiple visits to the emergency room in the last 2 weeks for generalized right-sided pain, including numbness of his right arm. He had associated nausea and vomiting with this abdominal pain. He continues to have abdominal discomfort that is fairly continuous, dull in nature, and nonradiating. Workup in the emergency room did show abnormal findings in the right colon with a thickened cecum and ascending colon, which is suspicious for colitis. It was recommended he undergo a colonoscopy. The procedure was discussed with him, and the risks reviewed. All his questions were answered to his satisfaction. Consent was obtained to proceed with colonoscopy Prep: Miralax/Dulcolax (Prep quality excellent) Findings: In examination of the colon from cecum to the anus, no gross abnormalities were noted in the terminal ileum, colon, and rectum. Random biopsies were taken throughout the colon and rectum which were submitted to pathology. Procedure Description: The patient was seen in the day surgery waiting area. His identification was confirmed, and procedure checked. He was then brought to the procedure room. Monitoring for telemetry, blood pressure, oxygen saturation , and end tidal CO2 monitoring were applied. An appropriate time out was performed to confirm, identification, allergies, medication, procedure, was performed. Sedation was titrated for affect by the S[employer]ER; Once adequate sedation was achieved, I performed a inspection of the external perineum, and a digitial rectal examination. No significant external abnormalities were noted. On digital rectal examination, there was no blood, no masses, good rectal tone, and a normal prostate. I advanced the colonoscope from the anus to the cecum under direct visualization. The cecum was identified by the ileal-cecal valve, and the appendiceal orifice. The terminal ileum was intubated for approximately 20 cm and appeared grossly normal. Scope was then withdrawn back into the cecum, and subsequently withdrawn circumferential manner from the cecum to the rectum. The colon appeared grossly normal, but random biopsies were taken throughout the colon. The scope was then withdrawn into the rectum, and retroflexed. No abnormalities were noted of the rectum, and random biopsies were taken throughout the colon and submitted for pathology. At the anorectal junction patient was noted to have grade 2 hemorrhoids. The scope was then withdrawn, terminating the procedure. There were no complications during the procedure, and the patient tolerated the procedure well. He was returned to the day surgery recovery area in good condition. Plan: We will await biopsy results before making further recommendations. As to the hemorrhoids, these should be amenable to topical treatment.
[2018-06-22 10:58] VITALS: BP 123/86; PULSE 69; RESP 16; TEMP 36.2; O2SAT 99
== END 2018-06-22 11:19 | disposition home or self-care (01) ==
PROVIDERS: PCP Family Medicine; Visit Provider Surgery
PROC: 0DJD8ZZ Inspection of Lower Intestinal Tract, Via Natural or Artificial Opening Endoscopic (ICD-10-PCS; CPT 45378; principal; 2018-06-22 09:15)
DX: R93.5 Abnormal findings on diagnostic imaging of other abdominal regions, including retroperitoneum (principal); R10.31 Right lower quadrant pain; K64.1 Second degree hemorrhoids
CPT/HCPCS: 45380; 88305; J2250; J3010

== ENCOUNTER 2019-11-24 08:56 | Outpatient (CLI) | payer SELFPAY ==
[2019-11-25 15:39] LABS: COVID-19 RT-PCR Result NEGATIVE (Negative)
== END 2019-11-24 09:16 ==
PROVIDERS: PCP Family Medicine; Visit Provider Family Medicine
DX: R05 Cough (principal); R06.00 Dyspnea, unspecified; Z03.818 Encounter for observation for suspected exposure to other biological agents ruled out
CPT/HCPCS: U0003

== ENCOUNTER 2020-03-26 12:40 | Outpatient (CLI) | payer OTHER, SELFPAY ==
--- NOTE | 2020-03-26 12:15 | DI.RAD_ITS ---
EXAM: XR RIBS LT W PA LAT CHEST CLINICAL HISTORY: rib contusion, left - dyspnea S20.219A CONTUSION FRONT WALL OF THORAX TECHNIQUE: COMPARISON: CR XR CHEST 2V PA LATERAL from 05/15/2018 FINDINGS: PA and lateral chest and 4 additional views of left ribs were obtained. Cardiac size is within arthur l limits. Lungs are clear. No pleural effusion. No evidence of rib fracture. No pneumothorax. IMPRESSION: Negative examination of the chest and left ribs. RADIATION DOSE DELIVERED: Total DLP
== END 2020-03-26 13:00 ==
PROVIDERS: PCP Family Medicine
DX: S20.212A Contusion of left front wall of thorax, initial encounter (principal); R06.00 Dyspnea, unspecified
CPT/HCPCS: 71046; 71100

== ENCOUNTER 2021-03-25 07:53 | Emergency (ER) | payer SELFPAY ==
[2021-03-25] VITALS (28 sets, daily range): BP systolic 97–120; BP diastolic 55–85; PULSE 48–75; RESP 8–24; TEMP 36.5; O2SAT 95–99
--- NOTE | 2021-03-25 08:00 | RT.EKG_ITS ---
APPROVED REPORT Exam: Resting ECG Reason for Exam: chest pain Patient Location: E HR:66 bpm ECG Measurements Heart Rate 66 AXIS ID 159 P 37 QRSd 88 QRS 47 QT 370 T 39 QTc 389 Conclusion Sinus rhythm...normal P axis, V-rate 60- 99 no STEMI, nondiagnostic EKG I have reviewed and interpreted ECG and agree with software generated interpretation.
--- NOTE | 2021-03-25 08:15 | DI.RAD_ITS ---
Exam(s) XR CHEST 2V PA LATERAL EXAM: XR CHEST 2V PA LATERAL CLINICAL HISTORY: Right sided chest pain TECHNIQUE: 2D digital imaging was performed. COMPARISON: CR XR RIBS LT W PA LAT CHEST from 03/26/2020 FINDINGS: MEDIASTINUM: Normal. HEART: Normal. PULMONARY VASCULATURE: Normal. LUNGS: Clear. PLEURAL SPACE: No pleural effusion or pneumothorax. BONE:Unremarkable for age. IMPRESSION: No acute abnormality. DATA REPOSITORY: RADIATION DOSE DELIVERED:
--- NOTE | 2021-03-25 08:22 | ED.GENADUL_ITS ---
Discharge Plan Disposition Patient Disposition: HOME Condition: Stable Discharge Details Clinical Impression: Acute costochondritis Primary Care Provider: Can Segura ED Provider: Margaux Terrazas Home Meds and New Rx's Prescriptions: No Action ibuprofen 600 mg tablet 600 mg PO Q6H PRN (Reason: pain) Qty: 90 RF: 1 triamcinolone acetonide 0.1 % cream 1 applic topical TID Qty: 80 RF: 1 Discharge Instructions Instructions: Costochondritis (ED) Additional Instructions: Today the work-up is within normal limits. Labs show no indication for your pain. Chest x-ray and ultrasound of your abdomen are all within normal limits. At this time I do suspect that your pain is caused from an inflammation of the connective tissues between the lungs. Please take Tylenol or Ibuprofen with food every 4-6 hours as needed for pain and swelling. At this time there is no evidence for cardiac abnormality, no problems with your gallbladder or liver, kidneys are also within normal limits. Follow up with primary care provider in 3-5 days. Return to ED sooner if any worsening or concerns. Increase oral fluids. Referrals: Can Segura. [Primary Care Provider] - Discharge Data Discharge Date/Time-TO BE ENTERED AT DEPARTURE: 03/25/21 12:01 Medical Decision Making 35-year-old male presents to the ER chief complaint of right-sided chest pain which began last night while he was asleep. He describes pain as constant, sharp which waxes and wanes. Increases with movement and deep breathing. He denies any heavy lifting or injury to the area. He denies any radiation. Denies any nausea vomiting or abdominal pain. He has a history of rib contusion, is a daily smoker. Chest x-ray, EKG, serial troponins, D-dimer and lipase ordered. Differential diagnosis includes but not limited to costochondritis, rib fracture, pneumothorax, pneumonia, cholecystitis, pleural effusion, coronary artery disease, pneumonia EKG was reviewed by Gracie Pal MD ER attending, old EKG available for review please see orders official report. 04 07: Patient reevaluation: Patient has received morphine and Zofran he reports little relief after medication. Discussed lab results and chest x-ray with patient who verbalized understanding. CBC shows no evidence of leukocytosis white blood cell count is 9.22, CMP also largely within normal limits lipase is 96 initial troponin is less than 0.05. EXAM: XR CHEST 2V PA LATERAL CLINICAL HISTORY: Right sided chest pain TECHNIQUE: 2D digital imaging was performed. COMPARISON: CR XR RIBS LT W PA LAT CHEST from 03/26/2020 FINDINGS: MEDIASTINUM: Normal. HEART: Normal. PULMONARY VASCULATURE: Normal. LUNGS: Clear. PLEURAL SPACE: No pleural effusion or pneumothorax. BONE:Unremarkable for age. IMPRESSION: No acute abnormality. Informed by field staff that patient is now complaining of right upper quadrant abdominal pain. We will add on an ultrasound to rule out cholecystitis. Abdominal Limited US: FINDINGS: LIVER: Normal size and echogenicity. No focal liver lesions are seen.. GALLBLADDER: No evidence of cholelithiasis. No evidence of wall thickening. No pericholecystic fluid identified. MORELAND'S SIGN: Negative. BILIARY SYSTEM: No intrahepatic or extrahepatic biliary ductal dilation. Right KIDNEY: Normal size.. No evidence of renal calculi. No evidence of hydronephrosis. No renal mass or cyst identified. PANCREAS: Normal where visualized. ABDOMINAL AORTA AND IVC: Visualized portions normal caliber. ASCITES: None seen. IMPRESSION: No evidence of acute cholecystitis or other acute abnormality.. At this time awaiting second troponin expected disposition discharge. Second troponin within normal limits. Patient discharged with follow-up with PCP. Discussed return instructions. At this time I do suspect costochondritis versus other etiologies for chest pain. This text was generated using [employer] system, please disregard any oddities of phrase or misspellings. HPI General Mode of arrival: ambulatory . Date/Time Provider Initiated Documentation: 03/25/21 08:00 . Limitations to Documentation: no limitations . Information obtained by: patient, RN notes reviewed and old records reviewed . HPI Narrative: 35-year-old male presents to the ER chief complaint of right- sided chest pain which began last night while he was asleep. He describes pain as constant, sharp which waxes and wanes. Increases with movement and deep jose thing. He denies any heavy lifting or injury to the area. He denies any radiation. Denies any nausea vomiting or abdominal pain. He has a history of rib contusion, is a daily smoker. Related Data Home Medications Medication Instructions Recorded Confirmed ibuprofen 600 mg tablet 600 mg PO Q6H PRN #90 tab 03/26/20 03/25/21 triamcinolone acetonide 0.1 % 1 applic TOPICAL TID #80 g 01/22/21 03/25/21 topical cream Previous Rx's Medication Instructions Recorded ibuprofen 600 mg tablet 600 mg PO Q6H PRN #90 tab 03/26/20 triamcinolone acetonide 0.1 % 1 applic TOPICAL TID #80 g 01/22/21 topical cream Allergies Allergy/AdvReac Type Severity Reaction Status Date / Time blueberry Allergy Unknown Verified 03/25/21 08:11 SEASONAL ALLERGY Allergy Unknown Uncoded 03/25/21 08:11 General Stated Complaint: Chest Pain FABRICE: 2 Review of Systems Narrative: Constitutional: Negative for weight loss, alert and oriented, well groomed, normal body habitus, appears uncomfortable. HEENT: Denies trauma, headaches, blurry vision, nasal discharge, sore throat, trouble swallowing. Chest: Denies palpitations, irregular rhythm, hypertension. Positive right- sided chest pain. Respiratory: Denies cough, hemoptysis. Positive sharp right-sided chest pain. GI: Denies abdominal pain, nausea, vomiting, diarrhea, constipation. : Denies dysuria, hematuria, flank pain, rectal bleeding. Neuro: Denies dizziness, blurry vision, weakness, syncope, headache or facial numbness. Hematologic: Denies easy bruising, intolerance to heat or cold, hair loss. [facility] Medical History Rib contusion Surgical History H/O colonoscopy (06/22/18) 06/22/18 - Dr Green, no specific pathological features, repeat at 45-50 yrs old or PRN per PCP/patient. Family History Mother Essential hypertension Father Asthma Sister No problems noted. Grandfather No problems noted. Grandfather No problems noted. Grandmother No problems noted. Grandmother No problems noted. Social History Smoking/Tobacco Use Status: Current every day Tobacco Type: cigarettes Smoking risk assessment performed?: Yes Alcohol Intake: current Alcohol Intake frequency: a few times a month Drug use: Never Do you feel safe at home: Yes Do you feel safe in your relationship?: Yes Exam Narrative Exam Narrative: Constitutional: Alert and oriented x3. Appears stated age. Normal body habitus. Head: Normocephalic, no trauma. Eyes: Pupils PERRLA, Red reflex noted, EOM's intact. Eyelids symmetrical without lesions, discharge, or swelling. ENT: Bilateral TM's WNL, External ear normal to inspection, no mastoid TTP, swelling, or erythema, Nasal turbinates WNL, no nasal discharge. Normal dentition, Posterior pharynx WNL, no exudate. Chest: RRR, Normal S1, S2, distal pulses intact. Chest is nontender to palpati on. Resp: Lungs clear to auscultation bilaterally, no wheezes, rales, or rhonchi. Abdomen: Soft, nondistended and nontender to palpation all 4 quadrants. Musculoskeletal: Normal gait, 5/5 strength to all four extremities. Skin: No suspicious rashes or lesions. Capillary refill less than 2 sec. Neurologic: Cranial nerves II-XII intact. Alert and oriented x 3. DTR's intact. Hematologic/Lymphatic: No ecchymosis, no lymphadenopathy. Course Vital Signs Vital signs: Vital Signs Temperature 36.5 C 03/25/21 08:05 Pulse 70 03/25/21 08:05 Respiratory Rate 24 03/25/21 08:05 Blood Pressure 120/85 03/25/21 08:05 Pulse Oximetry 98 03/25/21 08:05 Temperature 36.5 C 03/25/21 08:05 Temperature Source Temporal Artery Scan 03/25/21 08:05 Pulse 70 03/25/21 08:05 Respiratory Rate 24 03/25/21 08:05 Respiratory Effort Non-Labored 03/25/21 08:09 Blood Pressure 120/85 03/25/21 08:05 Blood Pressure Position Supine 03/25/21 08:05 Pulse Oximetry 98 03/25/21 08:05 Oxygen Delivery Method Room Air 03/25/21 08:05 Oxygen Flow Rate 0 03/25/21 08:05 Pain Level 10 03/25/21 08:05
[2021-03-25 08:27] LABS: Abs Immature Grans 0.02 10^3/uL (0.0-0.06); Absolute Basophil Count 0.07 10^3/uL (0.0-0.2); Absolute Lymphocyte Count 2.48 10^3/uL (1.2-3.4); Absolute Monocyte Count 0.75 10^3/uL (0.1-0.8); Basophils % 0.8; Eosinophils % 4.3; HCT 46.1 % (40.0-50.0); HGB 15.3 g/dL (13.5-17.5); Immature Grans % 0.2; Lymphocytes % 26.9; MCH 31.1 pg (27.0-33.0); MCHC 33.2 % (32.0-36.0); MCV 93.7 fL (80-95); MPV 9.8 fL (8.0-11.0); Monocytes % 8.1; Neutrophils % 59.7; Nucleated RBC 0 %; Platelet Count 291 10^3/uL (130-400); RBC 4.92 10^6/uL (4.36-5.78); RDW 12.6 % (11.8-14.1); RDW-SD 43.8 fL; WBC 9.22 10^3/uL (4.4-10.8)
[2021-03-25 08:36] LABS: Magnesium 2.1 mg/dL (1.8-2.4)
[2021-03-25 08:43] LABS: ALT 32 U/L (16-63); AST 19 U/L (15-37); Albumin 3.9 g/dL (3.4-5.0); Alkaline Phosphatase 81 U/L (46-116); Anion Gap 6.6 mmol/L (3-11); BUN 12 mg/dL (7-18); Bilirubin, Total 0.4 mg/dL (0.2-1.0); CO2 28.4 mmol/L (21.0-32.0); CREATININE 0.9 mg/dL (0.70-1.30); Calcium 8.9 mg/dL (8.5-10.1); Chloride 105 mmol/L (98-107); Glucose 104 mg/dL (74-106); Potassium 4.2 mmol/L (3.5-5.1); Sodium 140 mmol/L (136-145); Total Protein 7.1 g/dL (6.4-8.2); Troponin I < 0.05 ng/mL (<0.06)
[2021-03-25 08:44] LABS: Lipase 96 U/L (73-393)
[2021-03-25] MEDS: MORPHine 4 MG/ML SYR IVP (09:03)
[2021-03-25 09:04] LABS: D-Dimer 192 ng/mlFEU (<500)
[2021-03-25] MEDS: Ondansetron 4 MG/2 ML VIAL IVP (09:04)
[2021-03-25] MEDS: Normal Saline Flush 10 ML SYR IVP ×2 (09:04→09:57)
[2021-03-25] MEDS: Ketorolac 30 MG/ML VIAL IVP (09:56)
--- NOTE | 2021-03-25 10:00 | DI.US_ITS ---
Exam(s) US ABDOMEN LIMITED EXAM: US ABDOMEN LIMITED CLINICAL HISTORY: RUQ abd pain, R/O adrian TECHNIQUE: Ultrasound abdomen performed using standard protocol. FINDINGS: LIVER: Normal size and echogenicity. No focal liver lesions are seen.. GALLBLADDER: No evidence of cholelithiasis. No evidence of wall thickening. No pericholecystic fluid identified. MORELAND'S SIGN: Negative. BILIARY SYSTEM: No intrahepatic or extrahepatic biliary ductal dilation. Right KIDNEY: Normal size.. No evidence of renal calculi. No evidence of hydronephrosis. No renal ma ss or cyst identified. PANCREAS: Normal where visualized. ABDOMINAL AORTA AND IVC: Visualized portions normal caliber. ASCITES: None seen. IMPRESSION: No evidence of acute cholecystitis or other acute abnormality.. DATA REPOSITORY:
[2021-03-25] MEDS: Normal Saline 1,000 ML 150 ML IV (10:16)
[2021-03-25 11:38] LABS: Troponin I < 0.05 ng/mL (<0.06)
== END 2021-03-25 12:01 | disposition home or self-care (01) ==
PROVIDERS: Emergency Provider Registered Nurse Emergency; PCP Family Medicine
DX: M94.0 Chondrocostal junction syndrome [Tietze] (principal); R07.9 Chest pain, unspecified; R10.11 Right upper quadrant pain
CPT/HCPCS: 36415; 80053; 83690; 93005; 96374; 96375; 99284; 71046; 76705; 83735; 84484; 85025; 85379; 93010; J1885; J2270; J2405

== ENCOUNTER 2022-04-12 22:19 | Outpatient (REF) | payer BC, SELFPAY | END 2022-04-12 22:20 | disposition home or self-care (01) | LOC: LBN 22:19 | PROVIDERS: PCP Family Medicine; Visit Provider Nurse Practitioner Family | DX: J02.9 Acute pharyngitis, unspecified (principal) | CPT/HCPCS: 87070 ==

== ENCOUNTER 2023-09-02 08:44 | Outpatient (CLI) | payer SELFPAY ==
[2023-09-02 13:00] LABS: Calculated LDL 106 mg/dL (<100); Cholesterol 165 mg/dL (<200); Glucose 96 mg/dL (74-106); HDL Cholesterol 34 mg/dL (40-60); Triglyceride 125 mg/dL (<150)
== END 2023-09-02 08:45 | disposition home or self-care (01) ==
LOC: LOS 08:44
PROVIDERS: PCP Family Medicine; Referring Provider Family Medicine; Visit Provider Family Medicine
DX: E78.5 Hyperlipidemia, unspecified (principal); R73.9 Hyperglycemia, unspecified
CPT/HCPCS: 36415; 80061; 82947

== ENCOUNTER 2024-07-11 18:38 | Emergency (ER) | payer SELFPAY ==
[2024-07-11] VITALS (11 sets, daily range): BP systolic 114–140; BP diastolic 69–90; PULSE 98–123; RESP 11–30; TEMP 37.2–39.2; O2SAT 93–96
[2024-07-11] MEDS: Acetaminophen 500 MG TAB 1000 MG PO (19:11)
--- NOTE | 2024-07-11 19:34 | DI.RAD_ITS ---
Exam(s) XR CHEST 2V PA LATERAL EXAM: XR CHEST 2V PA LATERAL CLINICAL HISTORY: COUGH. TECHNIQUE: 2D digital imaging was performed. COMPARISON: CR XR CHEST 2V PA LATERAL from 03/25/2021 FINDINGS: 2 views: Heart size is normal. The mediastinum is not widened. The left lung is clear. However, there is a significant area of infiltrate in what is either in the right upper lobe or superior segment of the right lower lobe measuring 5 by 2.5 cm. No pleural effus ions. IMPRESSION: Significant right lung infiltrate as described above. Radiographic follow-up to resolution recommend ed. DATA REPOSITORY: RADIATION DOSE DELIVERED:
--- NOTE | 2024-07-11 19:35 | ED.GENADUL_ITS ---
Discharge Plan Disposition Patient Disposition: Home Condition: Stable Discharge Details Clinical Impression: Pneumonia Primary Care Provider: Can Segura ED Provider: Gogo Gomes Home Meds and New Rx's Prescriptions: New azithromycin 250 mg tablet 250 mg PO DAILY 4 Days Qty: 4 0RF Rx Instructions: start on day 2 of therapy promethazine 6.25 mg/5 mL syrup 12.5 mg PO Q6H PRN (Reason: cough) Qty: 120 0RF benzonatate 100 mg capsule 100 mg PO BID PRN (Reason: cough) Qty: 30 0RF No Action benzonatate 100 mg capsule 100 mg PO TID PRN (Reason: cough) Qty: 14 0RF albuterol sulfate [Proventil HFA] 90 mcg/actuation HFA aerosol inhaler 2 puff inhalation Q6H PRN (Reason: shortness of breath or wheezing) Qty: 8.5 0RF ibuprofen 600 mg tablet 600 mg PO Q6H PRN (Reason: pain) Qty: 90 1RF tadalafil 5 mg tablet 5 - 20 mg PO DAILY PRN (Reason: sexual activity) Qty: 30 6RF Discharge Instructions Instructions: Pneumonia in adults Additional Instructions: Your chest x-ray today demonstrated pneumonia. You were given your first dose of antibiotics in the emergency department., The remaining 4 days of therapy were sent to your pharmacy. Please start this tomorrow You are also discharged with medication to help with your cough You can continue the albuterol inhaler at home if this is helpful. Make sure to drink lots of fluids. You may continue to have some fever while the antibiotic begins to work, please treat this with Motrin and Tylenol return if you are not tolerating the medication or you feel like your symptoms are worsening or you feel more short of breath HPI General Date/Time Provider Initiated Documentation: 07/11/24 18:50 . Limitations to Documentation: no limitations . Information obtained by: patient . HPI Narrative: 38-year-old gentleman with past medical history of seasonal allergies and GERD presents for evaluation of 2 days of fever and cough. He denies any other associated symptoms like runny nose or sore throat. is also sick at home with a cold. He reports that he has had fever for 2 days. He says that he does use an albuterol inhaler at home that he does not feel like it has been helping. He denies any productive cough. Related Data Home Medications ?Medication ?Instructions ?Recorded ?Confirmed ibuprofen 600 mg tablet 600 mg PO Q6H PRN pain #90 tabs 03/26/20 07/11/24 tadalafil 5 mg tablet 5 - 20 mg (1 - 4 x 5 mg) PO DAILY 09/02/23 07/11/24 PRN sexual activity #30 tabs albuterol sulfate 90 mcg/actuation 2 puff inhalation Q6H PRN 03/19/24 07/11/24 aerosol inhaler (Proventil HFA) shortness of breath or wheezing #8.5 grams benzonatate 100 mg capsule 100 mg PO TID PRN cough #14 caps 03/19/24 07/11/24 azithromycin 250 mg tablet 250 mg PO DAILY 4 days #4 tabs 07/11/24 benzonatate 100 mg capsule 100 mg PO BID PRN cough #30 caps 07/11/24 promethazine 6.25 mg/5 mL oral 12.5 mg (10 mL) PO Q6H PRN cough 07/11/24 syrup #120 mL Previous Rx's ?Medication ?Instructions ?Recorded ibuprofen 600 mg tablet 600 mg PO Q6H PRN pain #90 tabs 03/26/20 tadalafil 5 mg tablet 5 - 20 mg (1 - 4 x 5 mg) PO DAILY 09/02/23 PRN sexual activity #30 tabs albuterol sulfate 90 mcg/actuation 2 puff inhalation Q6H PRN 03/19/24 aerosol inhaler (Proventil HFA) shortness of breath or wheezing #8.5 grams benzonatate 100 mg capsule 100 mg PO TID PRN cough #14 caps 03/19/24 azithromycin 250 mg tablet 250 mg PO DAILY 4 days #4 tabs 07/11/24 benzonatate 100 mg capsule 100 mg PO BID PRN cough #30 caps 07/11/24 promethazine 6.25 mg/5 mL oral 12.5 mg (10 mL) PO Q6H PRN cough 07/11/24 syrup #120 mL Allergies Allergy/AdvReac Type Severity Reaction Status Date / Time blueberry Allergy Unknown Swelling/Ed Verified 07/11/24 18:49 [email or web address] SEASONAL ALLERGY Allergy Unknown Nasal Uncoded 07/11/24 18:49 congestion General Stated Complaint: Fever FABRICE: 3 Exam Narrative Exam Narrative: Review of Systems: All systems reviewed & are unremarkable except as noted in HPI and below Well-developed, no acute distress Febrile NCAT PERRL, normal conjunctiva Bilateral TMs without erythema fluid collection or bulging Oropharynx without tonsillar enlargement significant erythema or exudate No significant cervical adenopathy RRR no murmur Unlabored respiratory effort clear bilaterally with some coarse rhonchi in the right middle lobe Nondistended abdomen soft non tender No rashes or lesions. Course Vital Signs Vital signs: Vital Signs Temperature 39.2 C H 07/11/24 18:44 Pulse 122 H 07/11/24 18:44 Respiratory Rate 30 H 07/11/24 18:44 Blood Pressure 140/77 07/11/24 18:44 Pulse Oximetry 93 07/11/24 18:44 Temperature 39.2 C H 07/11/24 18:47 Temperature Source Oral 07/11/24 18:47 Pulse 122 H 07/11/24 18:47 Respiratory Rate 30 H 07/11/24 18:47 Blood Pressure 140/77 07/11/24 18:47 Blood Pressure Position Sitting 07/11/24 18:47 Pulse Oximetry 93 07/11/24 18:47 Oxygen Delivery Method Room Air 07/11/24 18:47 Oxygen Flow Rate 0 07/11/24 18:47 Medical Decision Making Emergent evaluation of acute febrile illness. Initial differential includes viral illness, pneumonia, low suspicion for sepsis or other overwhelming in fection. Will give antipyretic, obtain viral testing and get chest x-ray. Chest x-ray reviewed and there does appear to be a consolidation in the right middle lobe. Will treat with antibiotics. First dose given in the emergency department today. On reevaluation the patient appears to have defervesced, his heart rate is coming down and he is feeling better. Will discharge with cough medication, sent to the pharmacy with additional antibiotic therapy . Quality:SDOH Health Related Social Needs: No Data to Display PFSH All Active Problems (Updated 07/11/24 @ 19:43 by Gogo Gomes MD) Pneumonia (Acute) Erectile dysfunction (Acute) Former smoker (Acute) Tremor (Acute) Knee pain, right anterior (Acute) SOB (shortness of breath) (Acute) Cough (Acute) Acute bacterial bronchitis (Acute) Chronic abdominal pain (Acute) 2020, neg, prior eval in 2018 and 2020 with imaging/labs GERD (gastroesophageal reflux disease) (Chronic) episodic , OTC meds Umbilical hernia (Acute) 2020- very small, noted on imaging back in 2018-stable Hemorrhoids (Acute ~06/2018) Altered mental status (Chronic) Surgical History H/O colonoscopy (06/22/18) 06/22/18 - Dr Green, no specific pathological features, repeat at 45-50 yrs old or PRN per PCP/patient. Family History Mother Essential hypertension Father Asthma Sister No problems noted. Grandfather No problems noted. Grandfather No problems noted. Grandmother No problems noted. Grandmother No problems noted. Social History Smoking/Tobacco Use Status: Current every day Tobacco Type: smokeless tobacco Smokeless tobacco user: chewing tobacco and other (cigs and cigars) Quit status: considering quitting Second Hand Exposure: Yes Smoking risk assessment performed?: Yes Alcohol Intake: current Alcohol Intake frequency: a few times a week Alcohol type: beer and hard liquor Drug use: Never Substance use type: does not use Adopted: No Caregiver/Support person: No Household members: spouse and children Housing: house Number of Children: 2 Communication Needs: None Education Level: high school Details: GED Do you need help understanding health information?: Rarely current occupation: Landscaping Pets and animals: No Sexually active: Yes Do you think of yourself as: straight/heterosexual Current gender identity: male What is your relationship status?: How often do you talk on the phone with friends or family?: three or more times per week How often do you get together with friends or relatives?: once per week How often do you attend spiritism or tenriism services?: decline to answer Do you belong to any clubs or organized social groups?: no Panel score (0-1 are the most socially isolated patients): 2 What type of physical activity do you participate in: decline to answer Duration: decline to answer Frequency: decline to answer Jane/Roman Catholic: No preference Special jane needs: No Seatbelt use: sometimes Helmet use: Yes Helmet use: sometimes Drive intox or ride w/intox limousine driver: No Firearms in home: No Do you feel safe at home: Yes Do you feel safe in your relationship?: Yes Victim of physical abuse: No Victim of emotional abuse: No Victim of sexual abuse: No Would you like helpful sources: No PAWSS Have you Been Recently Intoxicated or Drunk Within the Last 30 days?: No Have you Ever Experienced Previous Episodes of Alcohol Withdrawal?: No Have you ever Experienced Withdrawal Seizures?: No Have you ever Experienced Delirium Tremens(DT)s?: No Have you ever undergone Alcohol Rehabilitation Treatment (i.e, inpt ot outpatient treatment programs)?: No Have you ever Experienced Blackouts?: No Have you ever Combined Alcohol with other Downers within the last 90 days?: No Have you ever Combined Alcohol with any other Substance of Abuse during the last 90 days?: No Positive Blood Alcohol level on Presentation? [PCS.BAL]: No Evidence of Increased Autonomic Activity (i.e. HR>120, tremor, sweating, agitation, nausea)?: No Result: 0
[2024-07-11 19:47] LABS: COVID-19 PCR Negative (Negative); Influenza A PCR Negative (Negative); Influenza B PCR Negative (Negative); RSV PCR Negative (Negative)
[2024-07-11 19:49] LABS: Source Nasopharynx
[2024-07-11] MEDS: Azithromycin 250 MG TAB 500 MG PO (19:58)
--- NOTE | 2024-07-11 20:31 | DI.VRAD_ITS ---
PROCEDURE INFORMATION: Exam: XR Chest Exam date and time: 07/11/2024 7:33 PM Age: 38 years old Clinical indication: Cough TECHNIQUE: Imaging protocol: Radiologic exam of the chest. Views: 2 views. COMPARISON: CR XR CHEST 2V PA LATERAL 03/25/2021 8:45 AM FINDINGS: Lungs: A patchy opacity noted in the right upper lung zone, concerning for pneumonia. No evidence of pulmonary edema. Pleural spaces: No pleural effusion. No pneumothorax. Heart/Mediastinum: No cardiomegaly. Bones/joints: Unremarkable. IMPRESSION: Findings suggestive of pneumonia in the right upper lung zone. Correlate with clinical findings. Dictated and Authenticated by: Joann Mccullough MD. Ordering:STEVEN Chapman MD
== END 2024-07-11 20:21 | disposition home or self-care (01) ==
LOC: ER 19:48
PROVIDERS: Emergency Provider Emergency Medicine; PCP Family Medicine
DX: J18.9 Pneumonia, unspecified organism (principal); R05.1 Acute cough; R50.9 Fever, unspecified; R07.0 Pain in throat; F17.290 Nicotine dependence, other tobacco product, uncomplicated
CPT/HCPCS: 87637; 99283; 71046; 99284

== ENCOUNTER 2024-10-11 09:50 | Day surgery (SDC) | payer BC, SELFPAY ==
[2024-10-11] VITALS (27 sets, daily range): BP systolic 84–126; BP diastolic 47–83; PULSE 48–83; RESP 7–23; TEMP 36–36.5; O2SAT 92–99; BMI 33.6
--- NOTE | 2024-10-11 07:12 | PDOC.DSDIS_ITS ---
Date of service: 10/11/24 Discharge Plan Disposition Patient Disposition: Home Condition: Good Discharge Details Reason For Visit: Umbilical hernia repair Attending Provider: Andres Antony Primary Care Provider: Can Segura Home Meds and New Rx's Prescriptions: New tramadol 50 mg tablet 50 mg PO Q8H PRNQty: 9 0RF Rx Instructions: Take 1 tablet by mouth up to every 8 hours if needed for more severe pain Continued albuterol sulfate [Proventil HFA] 90 mcg/actuation HFA aerosol inhaler 2 puff inhalation Q6H PRN (Reason: shortness of breath or wheezing) Qty: 8.5 0RF ibuprofen 600 mg tablet 600 mg PO Q6H PRN (Reason: pain) Qty: 90 1RF Discharge Instructions Instructions: Abdominal Hernia Repair, Laparoscopic Surgery Additional Instructions: Sincere, I hope you feel well after this operation, and I wish you a quick and uneventful recovery. Everything went very smoothly. We are able to get the hernia reduced down, and patched up just like we talked about beforehand. Expect to get some bruising and pain over the next few days, that is extremely common and nothing to worry about. I usually recommend that patients use Tylenol and ibuprofen [id number] for the first 2 days. I did provide a prescription for a stronger medication if you need that as well. You may find that ice packs will help over the incision sites, or over your bellybutton to help with pain. Be careful with your lifting over the next few days, and keep it around a gallon of milk or so until we see you in the office. Assuming you are feeling well at that point, we will get you back to your regular activity. 1. Resume all of your regular medications. 2. Use ice packs over the incisions to help with pain and swelling. 3. Alternate [id number] Tylenol and ibuprofen every 6 hours for the first 2 days, then use as needed. Use the prescription for tramadol if needed for more severe pain. 4. Leave bandage in place for 24 hours, then remove. 5. Shower with warm soapy water. Pat dry. Use a bandaid if needed to protect your clothing. 6. No soaking or tub baths until I see you in the office. 7. No heavy lifting until I see you in the office. 8. Call the office (or go directly to the emergency room after hours) if you notice any of the following: Develop chills (warm to touch), or if you have a thermometer and your temperature is above 101 Difficulty breathing or difficultly swallowing Persistent vomiting Any bleeding ? exceeding one tablespoon 9. Call your physician if the site where your intravenous was started becomes red, swollen, painful, and warm to touch. Referrals: Andres Antony MD [ [facility] STAFF PHYSICIAN] - (October 27 at 1:45 PM) Activity:: No heavy lifting Remove Dressings/Wound Care:: 24 hours Shower/Bathe:: 24 hours Diet:: As Tolerated Discharge Orders Discharge Orders: Discharge Order (Routine); Ordered 10/11/24 Ordered By: Andres Antony DS: Diagnosis Discharge Diagnosis (1) Umbilical hernia: Status: Acute Asessment and Plan: Routine postoperative follow-up
--- NOTE | 2024-10-11 07:14 | ROE_ITS ---
Operative Note Operative Note PRE-OP DIAGNOSIS: Umbilical hernia PROCEDURE: Laparoscopic umbilical hernia repair with mesh SURGEON: Andres Antony OFFICE SERVICES CLERK: Rachel Alonzo ANESTHESIA TYPE: Local By Surgeon and General LMA/ETT Refer to Anesthesia Record ESTIMATED BLOOD LOSS: 25 PATHOLOGY: none sent COMPLICATIONS: None Patient was transported to: PACU Patient's condition: stable Implants: [address] hernia patch Indications: Sincere is a 38-year-old male with a symptomatic umbilical hernia Findings: Approximately 2 cm x 2 cm umbilical hernia Procedure Description: I met with Sincere in the preoperative area, and we reviewed the interval history. No major changes were noted to the physical exam, with partially reducible umbilical hernia. We reviewed the nature of the operation and what to expect. He had the chance to ask any other questions. Next, we moved back to the operating room. He was assisted onto the OR table, general endotracheal anesthesia was induced. Great care was taken to ensure that he was padded and supported appropriately. The left arm was gently tucked at his side. A Tapia urinary catheter was inserted in the usual manner. The anterior abdominal wall was then prepped and draped. I started with a 5 mm incision in the left upper quadrant in the area of Duff's point. I gained access to the peritoneum under a 5 mm optical viewing port. The peritoneum was insufflated. A 530 scope was introduced and the underlying viscera were examined and normal. Small umbilical hernia defect was appreciated. Next, I performed bilateral tap blocks. Next I inserted a 12 mm port in the left lateral abdomen. LigaSure was then used to dissect the peritoneum from the fascial defect. Preperitoneal fat was reduced and excised. The needle was then used to sound the area around the fascial defect to help select the appropriate size mesh. It appeared that an 11 cm mesh would provide excellent fascial overlap and coverage. Then with the fascia edge dissected and exposed, I made a small incision inferior to the umbilicus, and established to interrupting 0 Vicryl sutures across the fascial defect. The fascia was then closed. A Ventralight ST hernia patch was introduced into the peritoneal cavity, brought up to the anterior abdominal wall using the echo 2 positioning system. The four cardinal points were affixed with a surgical tacking device. There was excellent coverage, and the mesh sat nice and flat against the anterior abdominal wall. The remainder of the mesh edge was affixed in place with tacks, and the positioning system was removed according to the manufactures instructions. The 12 mm port was removed, and the fascia was closed with 0 Vicryl stitches. Skin sites were closed with subcuticular stitches. Bandages were applied, the Tapia catheter was removed, the patient was awoken from the anesthetic and transferred to the recovery unit Date of Procedure: 10/11/24
--- NOTE | 2024-10-11 09:55 | ANES.PREOP_ITS ---
General Info Date of Service Date Performed: 10/11/24 Height: 6 ft 2 in Weight: 118.8 kg Body Mass Index (BMI): 33.6 Surgical Procedure: Operation Date: 10/11/24 11:25 Proposed Procedure Side Surgeon p Hernia Umbilical Laparoscopic Andres Antony MD Meds Allergies and Home Medications Allergies Allergy/AdvReac Type Severity Reaction Status Date / Time blueberry Allergy Unknown Swelling/Ed Verified 10/11/24 10:09 [email or web address] SEASONAL ALLERGY Allergy Unknown Nasal Uncoded 10/11/24 10:09 congestion Home Medication ?Medication ?Instructions ?Recorded ibuprofen 600 mg tablet 600 mg PO Q6H PRN pain #90 tabs 03/26/20 albuterol sulfate 90 mcg/actuation 2 puff inhalation Q6H PRN 03/19/24 aerosol inhaler (Proventil HFA) shortness of breath or wheezing #8.5 grams Current Visit Medications: Current Medications Generic Name Dose Route Start Last Admin Trade Name Freq PRN Reason Stop Dose Admin Acetaminophen 1,000 mg 10/11/24 06:00 Acetaminophen 500 Mg Tab PO 10/11/24 23:59 PREOP DONNY Celecoxib 200 mg 10/11/24 06:00 Celecoxib 200 Mg Cap PO 10/11/24 23:59 PREOP DONNY Gabapentin 600 mg 10/11/24 06:00 Gabapentin 300 Mg Cap PO 10/11/24 23:59 PREOP DONNY Hydromorphone HCl 0.2 mg 10/11/24 07:15 Hydromorphone 2 Mg/Ml Syr IVP 11/10/24 07:14 Q1H PRN PRN Ringer's Solution 1,000 mls @ 80 mls/hr 10/11/24 06:00 IV 10/11/24 23:59 INFUSION DONNY Cefazolin Sodium/Dextrose 2 gm in 50 mls @ 100 mls/hr 10/11/24 06:00 Ancef Duplex IVPB 10/11/24 23:59 PREOP DONNY IV Miscellaneous Supplies 1 each 10/11/24 06:00 Iv Access IV 10/11/24 23:59 DIRECTED DONNY Sodium Chloride 0 ml 10/11/24 06:00 Normal Saline Flush 10 Ml Syr IV 10/11/24 23:59 PRN PRN Sodium Chloride 0 ml 10/11/24 06:00 Normal Saline 10 Ml Vial IJ 10/11/24 23:59 DIRECTED PRN Sterile Water 0 ml 10/11/24 06:00 Water,Injection,Sterile 10 Ml Vial IJ 10/11/24 23:59 DIRECTED PRN Tramadol HCl 50 mg 10/11/24 07:15 Tramadol 50 Mg Tab PO 11/10/24 07:14 Q6H PRN PRN Pain PFSH Active Problems Active Problems: Problem Status Onset Code Erectile dysfunction Acute N52.9 Former smoker Acute Z87.891 Tremor Acute R25.1 Knee pain, right anterior Acute M25.561 SOB (shortness of breath) Acute R06.02 Cough Acute R05.9 Acute bacterial bronchitis Acute J20.8, B96.89 Chronic abdominal pain Acute R10.9, G89.29 GERD (gastroesophageal reflux disease) Chronic K21.9 Umbilical hernia Acute K42.9 Hemorrhoids Acute ~06/2018 K64.9 Altered mental status Chronic R41.82 Medical History Medical History (Updated 10/11/24 @ 10:01 by Leander Krishnamurthy CRNA) Altered mental status Appears CO exposure in vehicle in 2014 ER note. No chronic changes noted in records. Surgical History Surgical History H/O colonoscopy (06/22/18) 06/22/18 - Dr Green, no specific pathological features, repeat at 45-50 yrs old or PRN per PCP/patient. Tobacco Smoking/Tobacco Use Status: Current every day Tobacco Type: smokeless tobacco Smokeless tobacco user: chewing tobacco and other (cigs and cigars) Passive smoking exposure: Yes Second hand exposure: Yes Alcohol Alcohol Intake: current Alcohol intake frequency: a few times a week Alcohol type: beer and hard liquor Substance Use Substance use: Never Substance use type: does not use Vital Signs and Lab Results Lab Results Blood Type / Crossmatch: 2 No Data to Display Complete Blood Count: 2 No Data to Display Complete Metabolic Panel: 2 No Data to Display Liver Function Panel: 2 No Data to Display Coagulation Panel: 2 No Data to Display Cardiac Panel: 2 No Data to Display Arterial Blood Gas: 2 No Data to Display Venous Blood Gas: 2 No Data to Display Pancreas Panel: 2 No Data to Display Thyroid Panel: 2 No Data to Display Infectious Disease: 2 No Data to Display Blood Cultures: 2 No Data to Display Toxicology Panel: 2 No Data to Display Imaging and Studies Imaging and Studies Study information below may be from another EMR and interpreted by another provider. Please see original notes in EMR for more complete details. EKG Summary: EKG PATIENT NAME: DIOR NOLAN UNIT #: [id number] ORDERING PROVIDER: Margaux Terrazas PRIMARY CARE PROVIDER: LEANDRO HOOK MD DATE/TIME OF SERVICE: 03/25/21810 : 1985 PERFORMING LOCATION: ER APPROVED REPORT Exam: Resting ECG Reason for Exam: chest pain Patient Location: E HR:66 bpm ECG Measurements Heart Rate 66 AXIS AK 159 P 37 QRSd 88 QRS 47 QT 370 T39 QTc 389 Conclusion Sinus rhythm...normal P axis, V-rate 60- 99 no STEMI, nondiagnostic EKG I have reviewed and interpreted ECG and agree with software generated interpretation. - <Electronically signed by NESHA PABLO MD in [place]> E-Sign Date: 03/25/21 E-Sign Time: 904 ADDENDUM APPROVED REPORT Exam: Resting ECG Reason for Exam: chest pain Patient Location: E HR:66 bpm ECG Measurements Heart Rate 66 AXIS AK 159 P 37 QRSd 88 QRS 47 QT 370 T39 QTc 389 Conclusion Sinus rhythm...normal P axis, V-rate 60- 99 no STEMI, nondiagnostic EKG I have reviewed and interpreted ECG and agree with software generated interpretation. I have reviewed and I agree with the emergency room physician's ECG interpretation. Electronically signed by: <Electronically signed by Leander Campos M.D. in [place]> 03/25/21 1043 Cosigned by: Anesthesia Assessment and Plan Anesthesia History Personal History: No History of Anesthesia Complications Family History: No Family History of Anesthesia Complications Exercise Tolerance Exercise Tolerance: Metabolic Equivalents>4 Pertinent Negatives Pertinent Negatives: No Major Cardiovascular Symptoms or Complaints and No History of CVA/TIA Cardiac & Pulmonary Exam Cardiac Exam: Normal S1/S2 Heart Sounds Pulmonary Exam: Clear Bilateral Breath Sounds Implantable Cardiac Device Does patient have a Pacemaker or an ICD?: No Airway Exam Known Difficult Airway: No Mallampati Class: 2 Mouth Opening: Normal (> 3cm) Thyromental Distance: Greater than 3 cm Neck Range of Motion: Full ROM Neck Circumference: Normal Teeth Condition: Generalized Poor Dentition Tooth Numberin 1. Missing several upper molars on the left and right, many broken teeth per patient 2. Missing several lower molars on the left and right, many broken teeth per patient ASA Classification ASA Score: ASA 2 Emergency Case?: No NPO Status NPO Status: NPO Clears >2 hours, Solids >8 hours Anesthesia Plan Resuscitation Status: Full Code Anesthesia Technique: General Anesthesia Airway Planned: Endotracheal Tube Monitors Used: Standard Monitors
[2024-10-11] MEDS: Acetaminophen 500 MG TAB 1000 MG PO (10:34)
[2024-10-11] MEDS: Lactated Ringers 1,000 ML 80 ML IV (10:34)
[2024-10-11] MEDS: Gabapentin 300 MG CAP 600 MG PO (10:35)
[2024-10-11] MEDS: Celecoxib 200 MG CAP PO (10:35)
[2024-10-11] MEDS: ceFAZolin 2 GM/50 ML BAG IVPB (11:53)
[2024-10-11] MEDS: Bupivacaine 0.5% Pres-Free 30 ML VIAL (12:23)
[2024-10-11] MEDS: Bupivacaine LIPOSOME/PF 133 MG/10 ML VIAL IJ (12:24)
[2024-10-11] MEDS: fentaNYL 100 MCG/2 ML VIAL IVP ×2 (13:45→13:54)
--- NOTE | 2024-10-11 14:31 | W.ANESPOSTOP ---
Postoperative Evaluation Date, Time and Location Date Performed: 10/11/24 Time Performed: 14:31 Patient Location: Day Surgery Unit Vital Signs Most Recent Imported Vital Signs: Most Recent Vital Signs Temp Pulse Resp BP Pulse Ox 36.0 C L 57 L 14 103/81 95 10/11/24 14:05 10/11/24 14:05 10/11/24 14:05 10/11/24 14:05 10/11/24 14:05 Pain Score Most Recent Pain Score: Most Recent Pain Score Pain Level 5 10/11/24 14:05 Assessment Mental Status: Awake (Alert & Oriented to Patient Baseline) Airway and Respiratory Function: Patent airway with normal (patient baseline) respiratory exam Cardiovascular Function: Hemodynamically Stable Hydration Status: Adequately Hydrated Nausea & Vomiting: No Nausea or Vomiting Pain: Pain is tolerable per patient Peripheral Nerve Block: Patient did not receive a nerve block
== END 2024-10-11 15:19 | disposition home or self-care (01) ==
PROVIDERS: PCP Family Medicine; Visit Provider Surgery
PROC: (CPT 49650; principal; 2024-10-11 11:15)
DX: K42.9 Umbilical hernia without obstruction or gangrene (principal)
CPT/HCPCS: 49595; C1781; J0665; J0666; J0690; J1100; J2003; J2405; J2704; J3010